=== PATIENT | male | born 1960 | race American Indian/Alaskan Native ===

== ENCOUNTER 2019-01-22 01:33 | Inpatient (IN) | payer MEDICAID ==
[2019-01-22] MEDS ORDERED: ASPIRIN PO ONE (02:55)
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
[2019-01-22 04:02] LABS: Basophils % (Auto) 0.1 % (0.0-1.8); Eosinophils % (Auto) 0.2 % (0.0-4.3); Hematocrit 34.6 % (35.5-45.6); Hemoglobin 11.5 gm/dl (11.8-15.2); Lymphocytes # (Auto) 0.6 K/mm3 (1.2-5.4); Lymphocytes % (Auto) 4.1 % (13.4-35.0); Mean Corpuscular HGB Conc 33 % (32-34); Mean Corpuscular Volume 95 fl (84-94); Monocytes # (Auto) 1.5 K/mm3 (0.0-0.8); Monocytes % (Auto) 10.1 % (0.0-7.3); Platelet Count 261 K/mm3 (140-440); Red Blood Count 3.65 M/mm3 (3.65-5.03); Red Cell Distribution Width 14.6 % (13.2-15.2)
[2019-01-22 05:13] LABS: BUN/Creatinine Ratio 11; Blood Urea Nitrogen 13 mg/dL (9-20); Calcium 8.5 mg/dL (8.4-10.2); Hemolysis Index 30
[2019-01-22] MEDS ORDERED: LASIX IV ONE (06:35)
[2019-01-22] MEDS ORDERED: ZESTRIL PO ONE (06:36)
[2019-01-22] MEDS ORDERED: LEVAQUIN PO ONE ×2 (06:36→06:37)
[2019-01-22] MEDS ORDERED: DELTASONE PO ONE (06:36)
--- NOTE | 2019-01-22 07:17 | Emergency Department Report ---
ED Shortness of Breath HPI - General Chief Complaint: Chest Pain Stated Complaint: CHEST PAIN Time Seen by Provider: 01/22/19 06:34 Source: patient, EMS Mode of arrival: Stretcher Limitations: No Limitations - History of Present Illness Initial Comments: Mr. Martinez is a 4-year-old male with history of chronic kidney disease, COPD, CHF, [place] who presents with shortness of breath. Shortness of breath for one week. He has sharp lower rib cage pain with inspiration. Productive cough. Former tobacco user. Positive shortness of breath with exertion. He has been compliant with his medication. MD Complaint: shortness of breath, cough, chest pain -: Gradual, week(s) (1) Severity: moderate Pain Scale: 5 Quality: sharp Consistency: intermittent Worsens With: exertion, inspiration Known History Of: COPD, congestive heart failure - Related Data Home Medications Medication Instructions Recorded Confirmed Last Taken Lisinopril [Zestril TAB] 09/03/13 09/03/13 Unknown Previous Rx's Medication Instructions Recorded Last Taken Type Meclizine [Antivert] 25 mg PO TID PRN #15 tablet 09/03/13 Unknown Rx Ondansetron [Zofran] 4 mg PO ONCE #12 tablet 09/03/13 Unknown Rx Cephalexin [Keflex] 250 mg PO Q6HR #28 capsule 10/28/13 Unknown Rx Allergies Allergy/AdvReac Type Severity Reaction Status Date / Time No Known Allergies Allergy Unverified 09/03/13 11:50 ED Review of Systems ROS: Stated complaint: CHEST PAIN Other details as noted in HPI Comment: All other systems reviewed and negative Constitutional: malaise. denies: fever Respiratory: cough, shortness of breath Cardiovascular: chest pain ED Past Medical Hx - Past Medical History Previous Medical History?: Yes Hx Hypertension: Yes Hx Congestive Heart Failure: Yes Hx COPD: Yes Additional medical history: vertigo - Surgical History Additional Surgical History: abd surgery - Social History Smoking Status: Former Smoker - Medications Home Medications: Home Medications Medication Instructions Recorded Confirmed Last Taken Type Lisinopril [Zestril TAB] 09/03/13 09/03/13 Unknown History Meclizine [Antivert] 25 mg PO TID PRN #15 tablet 09/03/13 Unknown Rx Ondansetron [Zofran] 4 mg PO ONCE #12 tablet 09/03/13 Unknown Rx Cephalexin [Keflex] 250 mg PO Q6HR #28 capsule 10/28/13 Unknown Rx ED Physical Exam - General Limitations: No Limitations General appearance: alert, in no apparent distress - Head Head exam: Present: atraumatic, normocephalic - Eye Eye exam: Present: normal appearance - ENT ENT exam: Present: mucous membranes moist - Neck Neck exam: Present: normal inspection, full ROM - Respiratory Respiratory exam: Present: normal lung sounds bilaterally. Absent: respiratory distress, wheezes, rales, rhonchi - Cardiovascular Cardiovascular Exam: Present: regular rate, normal rhythm, normal heart sounds. Absent: systolic murmur, diastolic murmur, rubs, gallop - GI/Abdominal GI/Abdominal exam: Present: soft, normal bowel sounds. Absent: distended, tenderness, guarding, rebound - Rectal Rectal exam: Present: deferred - Extremities Exam Extremities exam: Present: normal inspection - Back Exam Back exam: Present: normal inspection - Neurological Exam Neurological exam: Present: alert, oriented X3 - Psychiatric Psychiatric exam: Present: normal affect, normal mood - Skin Skin exam: Present: warm, dry, intact, normal color. Absent: rash ED Course Vital Signs 01/22/19 01/22/19 01/22/19 02:53 02:58 06:02 Temperature 97.8 F Pulse Rate 78 102 H Pulse Rate [ Throughout] Respiratory 20 19 24 Rate Respiratory Rate [ Throughout] Blood Pressure 137/86 Blood Pressure 149/98 [Right] O2 Sat by Pulse 97 97 Oximetry 01/22/19 01/22/19 01/22/19 07:30 08:30 10:25 Temperature Pulse Rate 100 H 109 H 103 H Pulse Rate [ Throughout] Respiratory 18 20 20 Rate Respiratory Rate [ Throughout] Blood Pressure Blood Pressure 136/96 138/92 151/88 [Right] O2 Sat by Pulse 97 98 100 Oximetry 01/22/19 01/22/19 11:30 13:09 Temperature Pulse Rate 99 H Pulse Rate [ 101 H Throughout] Respiratory 20 Rate Respiratory 19 Rate [ Throughout] Blood Pressure Blood Pressure 140/98 [Right] O2 Sat by Pulse 97 Oximetry ED Medical Decision Making - Lab Data Result diagrams: 01/22/19 03:40 01/22/19 03:40 Laboratory Results - last 24 hr 01/22/19 01/22/19 01/22/19 03:40 03:40 05:53 WBC 15.0 H RBC 3.65 Hgb 11.5 L Hct 34.6 L MCV 95 H MCH 32 MCHC 33 RDW 14.6 Plt Count 261 Lymph % (Auto) 4.1 L Gregg % (Auto) 10.1 H Eos % (Auto) 0.2 Baso % (Auto) 0.1 Lymph # 0.6 L Gregg # 1.5 H Eos # 0.0 Baso # 0.0 Seg Neutrophils % 85.5 H Seg Neutrophils # 12.8 H D-Dimer Sodium 142 Potassium 3.5 L Chloride 103.9 Carbon Dioxide 23 Anion Gap 19 BUN 13 Creatinine 1.2 Estimated GFR > 60 BUN/Creatinine Ratio 11 Glucose 103 H Calcium 8.5 Troponin T < 0.010 < 0.010 NT-Pro-B Natriuret Pep 01/22/19 01/22/19 01/22/19 07:08 07:08 08:30 WBC RBC Hgb Hct MCV MCH MCHC RDW Plt Count Lymph % (Auto) Gregg % (Auto) Eos % (Auto) Baso % (Auto) Lymph # Gregg # Eos # Baso # Seg Neutrophils % Seg Neutrophils # D-Dimer 341.68 H Sodium Potassium Chloride Carbon Dioxide Anion Gap BUN Creatinine Estimated GFR BUN/Creatinine Ratio Glucose Calcium Troponin T < 0.010 NT-Pro-B Natriuret Pep 3501 H - EKG Data 01/22/19 07:17 EKG obtained 246 Sinus tachycardia rate 100 beats a minute left axis deviation no significant ST elevation positive LVH no signs of acute ischemia no signs of pericarditis - Radiology Data Radiology results: report reviewed Chest x-ray: Right hilar disease CT angiogram chest: No PE no acute process, scarring in the right lung - Medical Decision Making Mr. Martinez has had persistent dyspnea and tachycardia while in ED. Suspect COPD exacerbation. CT negative for PE and PNA, PTX. Will admit to hospitalist service. Has had complaints of migrating chest pain atypical for ACS. Critical care attestation.: If time is entered above; I have spent that time in minutes in the direct care of this critically ill patient, excluding procedure time. ED Disposition Clinical Impression: COPD with acute exacerbation Disposition: OP ADMIT IP TO THIS HOSP Is pt being admited?: Yes Does the pt Need Aspirin: No Condition: Stable
--- NOTE | 2019-01-22 10:23 | Cat Scan Report ---
CTA CHEST WITH IV CONTRAST INDICATION: Pleuritic chest pain and elevated d-dimer. TECHNIQUE: Axial CT images were obtained through the chest after injection of 100 cc of Omnipaque 350 IV contras t. 3 plane MIP reconstructions were produced. All CT scans at this location are performed using CT do se reduction for ALARA by means of automated exposure control. COMPARISON: None available. FINDINGS: Pulmonary Arteries: No pulmonary emboli. Lungs: There is chronic scarring in the right middle and right lower lobes with elevation of the righ t hemidiaphragm, basis indeterminate. There is no acute consolidation or pleural effusion. There is n o additional significant interstitial disease. Trachea and Bronchi: No significant abnormality. Heart and Pericardium: No significant abnormality. Vasculature: No significant abnormality. Lymphatics: No lymphadenopathy. Additional Findings: None. Upper Abdomen: No acute findings. Skeletal Structures: No significant osseous abnormality. IMPRESSION: 1. No CT evidence for pulmonary embolism. 2. No acute findings. 3. Chronic linear scarring in the right lower lung with elevation of the right hemidiaphragm, basis i ndeterminate. Signer Name: Graeme Davis MD Signed: 01/22/2019 9:19 AM Workstation Name: [id number]
[2019-01-22] MEDS ORDERED: ATROVENT IH ONE (11:24)
[2019-01-22] MEDS ORDERED: PROVENTIL IH ONE (11:24)
[2019-01-22] MEDS ORDERED: PROAIR IH PRN (20:22)
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
[2019-01-22] MEDS ORDERED: NON-FORMULARY (Furosemide [Lasix Tab] 80 MG) PO SCH (20:30)
[2019-01-22] MEDS ORDERED: PROVENTIL IH PRN (20:40)
[2019-01-22] MEDS ORDERED: SODIUM CHLORIDE FLUSH SYRINGE 10 ML IV PRN (21:02)
[2019-01-22] MEDS ORDERED: ZOFRAN IV PRN (21:02)
[2019-01-22] MEDS ORDERED: PERCOCET 5/325 PO PRN (21:02)
[2019-01-22] MEDS ORDERED: TYLENOL PO PRN (21:02)
[2019-01-22] MEDS: FLOMAX PO SCH (21:26)
[2019-01-22] MEDS: PROSCAR PO SCH (21:26)
[2019-01-22] MEDS: ALDACTONE PO SCH (21:26)
[2019-01-22] MEDS: HALFPRIN EC PO SCH (21:27)
[2019-01-22] MEDS: VITAMIN B-12 PO SCH (21:37)
[2019-01-22] MEDS: SOLU-Medrol IV SCH (21:39)
[2019-01-22] MEDS: PEPCID IV SCH (21:39)
[2019-01-22] MEDS: LOVENOX SUB-Q SCH (21:39)
[2019-01-22] MEDS: LEVAQUIN 750MG/150ML 750 MG/150 ML BAG IV SCH (21:40)
[2019-01-22] MEDS: K-DUR PO SCH (21:40)
[2019-01-22] MEDS: CLARITIN PO SCH (21:40)
[2019-01-22] MEDS: SODIUM CHLORIDE FLUSH SYRINGE 10 ML IV SCH (21:43)
[2019-01-22] MEDS: COREG PO SCH (21:44)
[2019-01-22] MEDS ORDERED: K-DUR PO ONE (22:00)
[2019-01-22] MEDS ORDERED: NON-FORMULARY (Budesonide/Formoterol Fumarate [Symbicort 160-4.5 Mcg Inhaler] 2 PUFF) IH SCH (22:00)
[2019-01-23] MEDS: PULMICORT IH SCH ×4 (00:09→19:41)
[2019-01-23] MEDS: FLONASE NS SCH ×2 (00:09→09:35)
[2019-01-23] MEDS: BROVANA NEBU IH SCH ×3 (00:10→19:41)
[2019-01-23] MEDS: PROVENTIL IH SCH ×5 (00:10→19:41)
[2019-01-23] MEDS: LASIX IV SCH ×2 (05:17→18:21)
[2019-01-23 06:33] LABS: Hematocrit 35.3 % (35.5-45.6); Hemoglobin 11.8 gm/dl (11.8-15.2); Mean Corpuscular HGB Conc 33 % (32-34); Mean Corpuscular Volume 95 fl (84-94); Platelet Count 283 K/mm3 (140-440); Red Blood Count 3.72 M/mm3 (3.65-5.03); Red Cell Distribution Width 14.2 % (13.2-15.2)
[2019-01-23 07:02] LABS: Alanine Aminotransferase 6 units/L (7-56); Albumin 3.8 g/dL (3.9-5); BUN/Creatinine Ratio 13; Blood Urea Nitrogen 16 mg/dL (9-20); Calcium 9.5 mg/dL (8.4-10.2); Hemolysis Index 6
[2019-01-23] MEDS ORDERED: DUONEB *Not for PRN Use IH SCH (08:00)
[2019-01-23 09:24] LABS: Basophils % (Manual) 0 % (0.0-1.8); Eosinophils % (Manual) 0 % (0.0-4.3); Total Cells Counted 100
[2019-01-23 09:26] LABS: Large Platelets Rare; Platelet Estimate Consistent w Auto; RBC Morphology Normal
[2019-01-23] MEDS: LEVAQUIN 750MG/150ML 750 MG/150 ML BAG IV SCH (09:30)
[2019-01-23] MEDS: ISORDIL TITRADOSE PO SCH ×3 (09:36→22:16)
[2019-01-23] MEDS: VITAMIN B-12 PO SCH (09:37)
[2019-01-23] MEDS: PROSCAR PO SCH (09:37)
[2019-01-23] MEDS: APRESOLINE PO SCH ×3 (09:38→22:16)
[2019-01-23] MEDS: COREG PO SCH ×2 (09:38→22:17)
[2019-01-23] MEDS: CLARITIN PO SCH (09:38)
[2019-01-23] MEDS: HALFPRIN EC PO SCH (09:38)
[2019-01-23] MEDS: PEPCID IV SCH ×2 (09:39→22:18)
[2019-01-23] MEDS: SODIUM CHLORIDE FLUSH SYRINGE 10 ML IV SCH ×2 (09:41→22:18)
[2019-01-23] MEDS: SOLU-Medrol IV SCH ×2 (09:51→22:18)
[2019-01-23] MEDS: K-DUR PO SCH ×2 (09:51→22:15)
[2019-01-23] MEDS: ALDACTONE PO SCH (09:52)
--- NOTE | 2019-01-23 12:10 | Consultation ---
History of Present Illness Consult date: 01/23/19 Requesting physician: ESE VAZ Consult reason: congestive heart failure History of present illness: The pt is a 58 YO male with a past medical history of reported AMI in 2002 in [place] (states he had cath with no intervention required at that time), HFrEF, CMP with recent LifeVest placement (although he subsequently returned the device to [facility] [place] [facility] because he was scared to wear it while home alone), HTN, HLP, CKD, COPD, former tobacco use (quit smoking 1 year ago). He states he is regularly followed by a mold closer in [place], [place]. He presented with complaints of chest pain and SOB for several days. He describes his chest pain as an intermittent, nonexertional, nonradiating stabbing ribcage pain which occurs with inspiration and coughing. He denies any edema, palpitations, n/v, diaphoresis, dizziness or syncope. He reports compliance with his home medication regimen, including lasix. Past History Past Medical History: acute ME, heart failure, hypertension, hyperlipidemia, renal failure Social history: smoking (former) Medications and Allergies Allergies Allergy/AdvReac Type Severity Reaction Status Date / Time No Known Allergies Allergy Unverified 09/03/13 11:50 Home Medications Medication Instructions Recorded Confirmed Last Taken Type ALBUTEROL Inhaler (OR & NICU) 2 puff IH Q4H PRN 01/22/19 01/22/19 Unknown History [Proair] ALBUTEROL NEB's [Proventil] 2.5 mg IH Q6H 01/22/19 01/22/19 Unknown History Aspirin EC 81 mg PO QDAY 01/22/19 01/22/19 Unknown History AtorvaSTATin [Lipitor] 20 mg PO DAILY 01/22/19 01/22/19 Unknown History Budesonide/Formoterol Fumarate 2 puff IH BID 01/22/19 01/22/19 Unknown History [Symbicort 160-4.5 Mcg Inhaler] Carvedilol [Coreg] 12.5 mg PO BID 01/22/19 01/22/19 Unknown History Cyanocobalamin [Vitamin B-12] 2,000 mcg PO DAILY 01/22/19 01/22/19 Unknown History Finasteride [Proscar] 5 mg PO QDAY 01/22/19 01/22/19 Unknown History Fluticasone [Flonase] 2 spray NS QDAY 01/22/19 01/22/19 Unknown History Furosemide [Lasix TAB] 80 mg PO QDAY 01/22/19 01/22/19 Unknown History Isosorbide Dinitrate [Isordil 10 mg PO TID 01/22/19 01/22/19 Unknown History Titradose] Loratadine [Claritin] 10 mg PO DAILY 01/22/19 01/22/19 Unknown History Montelukast [Singulair] 10 mg PO QPM 01/22/19 01/22/19 Unknown History Spironolactone [Aldactone] 25 mg PO QDAY 01/22/19 01/22/19 Unknown History Tamsulosin [Flomax] 0.4 mg PO HS 01/22/19 01/22/19 Unknown History hydrALAZINE [Apresoline] 25 mg PO TID 01/22/19 01/22/19 Unknown History Active Meds: Active Medications Acetaminophen (Tylenol) 650 mg PO Q4H PRN PRN Reason: Pain MILD(1-3)/Fever >100.5/HUITRON Albuterol (Proventil) 2.5 mg IH Q6H [facility] Last Admin: 01/23/19 07:35 Dose: Not Given Documented by: Albuterol (Proventil) 2.5 mg IH Q4HRT PRN PRN Reason: Shortness Of Breath Arformoterol Tartrate (Brovana Nebu) 15 mcg IH Q12HRT [facility] Last Admin: 01/23/19 07:35 Dose: 15 mcg Documented by: Aspirin (Halfprin Ec) 81 mg PO QDAY [facility] Last Admin: 01/23/19 09:38 Dose: 81 mg Documented by: Atorvastatin Calcium (Lipitor) 20 mg PO DAILY [facility] Last Admin: 01/23/19 09:38 Dose: 20 mg Documented by: Budesonide (Pulmicort) 1 mg IH Q12HRT [facility] Last Admin: 01/23/19 07:35 Dose: 0.5 mg Documented by: Carvedilol (Coreg) 12.5 mg PO BID [facility] Last Admin: 01/23/19 09:38 Dose: 12.5 mg Documented by: Cyanocobalamin (Vitamin B-12) 2,000 mcg PO DAILY [facility] Last Admin: 01/23/19 09:37 Dose: 2,000 mcg Documented by: Enoxaparin Sodium (Lovenox) 40 mg SUB-Q QDAY@2200 [facility] Last Admin: 01/22/19 21:39 Dose: 40 mg Documented by: Famotidine (Pepcid) 20 mg IV BID [facility] Last Admin: 01/23/19 09:39 Dose: 20 mg Documented by: Finasteride (Proscar) 5 mg PO QDAY [facility] Last Admin: 01/23/19 09:37 Dose: 5 mg Documented by: Fluticasone Propionate (Flonase) 100 mcg NS QDAY [facility] Last Admin: 01/23/19 09:35 Dose: 100 mcg Documented by: Furosemide (Lasix) 40 mg IV 0600,1800 [facility] Last Admin: 01/23/19 05:17 Dose: 40 mg Documented by: Hydralazine HCl (Apresoline) 25 mg PO TID [facility] Last Admin: 01/23/19 09:38 Dose: 25 mg Documented by: Hydromorphone HCl (Dilaudid) 0.5 mg IV Q3H PRN PRN Reason: Pain , Severe (7-10) Levofloxacin/Dextrose (Levaquin 750mg/150ml) 750 mg in 150 mls @ 100 mls/hr IV Q24HR [facility]; Protocol Last Admin: 01/23/19 09:30 Dose: 100 mls/hr Documented by: Isosorbide Dinitrate (Isordil Titradose) 10 mg PO TID [facility] Last Admin: 01/23/19 09:36 Dose: 10 mg Documented by: Loratadine (Claritin) 10 mg PO DAILY [facility] Last Admin: 01/23/19 09:38 Dose: 10 mg Documented by: Methylprednisolone Sodium Succinate (Solu-Medrol) 40 mg IV Q12H [facility] Last Admin: 01/23/19 09:51 Dose: 40 mg Documented by: Montelukast Sodium (Singulair) 10 mg PO QPM [facility] Ondansetron HCl (Zofran) 4 mg IV Q8H PRN PRN Reason: Nausea And Vomiting Oxycodone/Acetaminophen (Percocet 5/325) 1 tab PO Q6H PRN PRN Reason: Pain, Moderate (4-6) Potassium Chloride (K-Dur) 20 meq PO Q12H [facility] Last Admin: 01/23/19 09:51 Dose: 20 meq Documented by: Sodium Chloride (Sodium Chloride Flush Syringe 10 Ml) 10 ml IV BID [facility] Last Admin: 01/23/19 09:41 Dose: 10 ml Documented by: Sodium Chloride (Sodium Chloride Flush Syringe 10 Ml) 10 ml IV PRN PRN PRN Reason: LINE FLUSH Spironolactone (Aldactone) 25 mg PO QDAY [facility] Last Admin: 01/23/19 09:52 Dose: 25 mg Documented by: Tamsulosin HCl (Flomax) 0.4 mg PO HS [facility] Last Admin: 01/22/19 21:26 Dose: 0.4 mg Documented by: Review of Systems Constitutional: no weight loss, no weight gain, no fever, no chills, no sweats Ears, nose, mouth and throat: no ear pain, no nose pain, no sinus pressure, no sinus pain Cardiovascular: chest pain, shortness of breath, dyspnea on exertion, decreased exercise tolerance, no palpitations, no rapid/irregular heart beat, no edema, no syncope, no lightheadedness, no leg edema Respiratory: cough, shortness of breath, dyspnea on exertion, pain on inspiration, no congestion, no wheezing Gastrointestinal: no abdominal pain, no nausea, no vomiting, no diarrhea, no constipation, no change in bowel habits Genitourinary Male: no dysuria, no hematuria, no flank pain, no discharge, no urinary frequency, no urinary hesitancy Musculoskeletal: no neck stiffness, no neck pain, no shooting arm pain, no arm numbness/tingling, no low back pain, no shooting leg pain Integumentary: no rash, no pruritis, no redness, no sores, no wounds Neurological: no head injury, no paralysis, no weakness, no parathesias, no numbness, no tingling, no seizures, no syncope Psychiatric: no anxiety Endocrine: no cold intolerance, no heat intolerance Hematologic/Lymphatic: no easy bruising, no easy bleeding Allergic/Immunologic: no urticaria, no wheezing Physical Examination Vital Signs Temp Pulse Resp BP Pulse Ox 97.8 F 78 20 137/86 97 01/22/19 02:53 01/22/19 02:53 01/22/19 02:53 01/22/19 02:53 01/22/19 02:53 General appearance: no acute distress HEENT: Positive: PERRL, Normocephaly, Mucus Membranes Moist Neck: Positive: neck supple, trachea midline Cardiac: Positive: Reg Rate and Rhythm, S1/S2 Lungs: Positive: Decreased Breath Sounds Neuro: Positive: Grossly Intact Abdomen: Negative: Tender Skin: Negative: Rash Musculoskeletal: No Pain Extremities: Absent: edema Results 01/23/19 05:47 01/23/19 05:47 Cardiac Enzymes 01/23/19 Range/Units 05:47 AST 13 (5-40) units/L CBC 01/23/19 Range/Units 05:47 WBC 14.1 H (4.5-11.0) K/mm3 RBC 3.72 (3.65-5.03) M/mm3 Hgb 11.8 (11.8-15.2) gm/dl Hct 35.3 L (35.5-45.6) % Plt Count 283 (140-440) K/mm3 Comprehensive Metabolic Panel 01/23/19 Range/Units 05:47 Sodium 141 (137-145) mmol/L Potassium 4.7 D (3.6-5.0) mmol/L Chloride 106.5 (98-107) mmol/L Carbon Dioxide 24 (22-30) mmol/L BUN 16 (9-20) mg/dL Creatinine 1.2 (0.8-1.5) mg/dL Glucose 158 H (75-100) mg/dL Calcium 9.5 (8.4-10.2) mg/dL AST 13 (5-40) units/L ALT 6 L (7-56) units/L Alkaline Phosphatase 86 (35-129) units/L Total Protein 7.2 (6.3-8.2) g/dL Albumin 3.8 L (3.9-5) g/dL - Imaging and Cardiology Echo: pending EKG: report reviewed, image reviewed EKG interpretations - Telemetry EKG Rhythm: Sinus Rhythm - EKG Sinus rhythms and dysrhythmias: sinus rhythm AV and intraventricular conduction: intraventricular conducti Assessment and Plan DDimer elevated - chest CTA negative for PE, showed chronic linear scarring in the RLL with elevation of right hemidiaphragm. AMI ruled out. Pt's chest pain appears to be pleuritic in nature. Will obtain echo. Per pt's reported history, suspect pt has HFrEF and CMP. He will likely require ischemic evaluation for further eval of cp and CMP. 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 He states he has undergone cardiac catheterization before and was also ordered a LifeVest at one point. We will attempt to obtain these medical records. Will tentatively schedule for lexiscan MPI stress test in AM although he may ultimately require C for definitive diagnosis. He may also require LifeVest to be reinstated. Agree with present cardiac medical management. Further recs to follow per hosp ital course. The patient has been seen in conjunction with Dr. Robles who agrees with the assessment and plan of care. - Patient Problems (1) Acute heart failure Current Visit: Yes Status: Acute (2) Cardiomyopathy Current Visit: Yes Status: Suspected (3) COPD with acute exacerbation Current Visit: Yes Status: Acute (4) Chest pain Current Visit: Yes Status: Acute Qualifiers: Chest pain type: unspecified Qualified Code(s): R07.9 - Chest pain, unspecified (5) Coronary artery disease Current Visit: Yes Status: Chronic Qualifiers: Coronary Disease-Associated Artery/Lesion type: [place] artery [place] vs. transplanted heart: [place] heart (6) Hyperlipidemia Current Visit: Yes Status: Chronic Qualifiers: Hyperlipidemia type: mixed hyperlipidemia Qualified Code(s): E78.2 - Mixed hyperlipidemia (7) Hypertension Current Visit: Yes Status: Chronic Qualifiers: Hypertension type: essential hypertension Qualified Code(s): I10 - Essential (primary) hypertension (8) CKD (chronic kidney disease) Current Visit: Yes Status: Chronic
--- NOTE | 2019-01-23 13:25 | Progress Note ---
Assessment and Plan Assessment and plan: (1) chronic systolic CHF with exacerbation Patient said it ejection fraction was 25% IV Lasix 40 mg every 12 Daily weights Daily intake and output Echocardiogram for ejection fraction and valvular function Cardiology consult appreciated (2) Chest pain Troponins were negative stress test ordered by cardiology (3) COPD with acute exacerbation Nebulizer treatments with albuterol and ipratropium IV Solu-Medrol and IV Levaquin BiPAP if necessary (4) BPH (benign prostatic hyperplasia) Continue tamsulosin and Proscar (5) Hypertension Continue antihypertensives (6) Hyperlipidemia Continue statins (7) Coronary artery disease Continue Isordil and aspirin (8) Hypokalemia Supplemented (9) DVT prophylaxis On Lovenox and GI prophylaxis Disposition: continue inpatient care. History Interval history: Patient was seen and evaluated this morning, patient said SOB getting better. Hospitalist Physical - Physical exam Narrative exam: Not in cardiopulmonary distress. The patient is obese. Vital signs as documented. Head exam is unremarkable. No scleral icterus . Neck is without jugular venous distension, thyromegaly, or carotid bruits. Lungs are clear to auscultation. Cardiac exam reveals regular rate and Rhythm. Abdominal exam reveals normal bowel sounds, no masses, no organomegaly and no aortic enlargement. Extremities are nonedematous and both femoral and pedal pulses are normal. ALLERGY AND IMMUNOLOGY CHIEF: Alert and oriented 3. No focal weakness. - Constitutional Vitals: Temp Pulse Resp BP Pulse Ox 97.9 F 83 17 118/79 100 01/23/19 07:29 01/23/19 09:52 01/23/19 07:45 01/23/19 07:29 01/23/19 07:29 General appearance: Present: no acute distress Results - Labs CBC & Chem 7: 01/23/19 05:47 01/23/19 05:47 Labs: Laboratory Last Values WBC 14.1 K/mm3 (4.5-11.0) H 01/23/19 05:47 RBC 3.72 M/mm3 (3.65-5.03) 01/23/19 05:47 Hgb 11.8 gm/dl (11.8-15.2) 01/23/19 05:47 Hct 35.3 % (35.5-45.6) L 01/23/19 05:47 MCV 95 fl (84-94) H 01/23/19 05:47 MCH 32 pg (28-32) 01/23/19 05:47 MCHC 33 % (32-34) 01/23/19 05:47 RDW 14.2 % (13.2-15.2) 01/23/19 05:47 Plt Count 283 K/mm3 (140-440) 01/23/19 05:47 Lymph % (Auto) 4.1 % (13.4-35.0) L 01/22/19 03:40 [place] % (Auto) 10.1 % (0.0-7.3) H 01/22/19 03:40 Eos % (Auto) 0.2 % (0.0-4.3) 01/22/19 03:40 Baso % (Auto) 0.1 % (0.0-1.8) 01/22/19 03:40 Lymph # 0.6 K/mm3 (1.2-5.4) L 01/22/19 03:40 [place] # 1.5 K/mm3 (0.0-0.8) H 01/22/19 03:40 Eos # 0.0 K/mm3 (0.0-0.4) 01/22/19 03:40 Baso # 0.0 K/mm3 (0.0-0.1) 01/22/19 03:40 Add Manual Diff Complete 01/23/19 05:47 Total Counted 100 01/23/19 05:47 Seg Neutrophils % 85.5 % (40.0-70.0) H 01/22/19 03:40 Seg Neuts % (Manual) 95.0 % (40.0-70.0) H 01/23/19 05:47 0 % 01/23/19 05:47 4.0 % (13.4-35.0) L 01/23/19 05:47 Reactive Lymphs % (Man) 0 % 01/23/19 05:47 1.0 % (0.0-7.3) 01/23/19 05:47 0 % (0.0-4.3) 01/23/19 05:47 0 % (0.0-1.8) 01/23/19 05:47 0 % 01/23/19 05:47 0 % 01/23/19 05:47 0 % 01/23/19 05:47 0 % 07/03/19 05:47 Nucleated RBC % Not Reportable 01/23/19 05:47 Seg Neutrophils # 12.8 K/mm3 (1.8-7.7) H 01/22/19 03:40 Seg Neutrophils # Man 13.4 K/mm3 (1.8-7.7) H 01/23/19 05:47 Band Neutrophils # 0.0 K/mm3 01/23/19 05:47 0.6 K/mm3 (1.2-5.4) L 01/23/19 05:47 Abs React Lymphs (Man) 0.0 K/mm3 01/23/19 05:47 0.1 K/mm3 (0.0-0.8) 01/23/19 05:47 0.0 K/mm3 (0.0-0.4) 01/23/19 05:47 0.0 K/mm3 (0.0-0.1) 01/23/19 05:47 0.0 K/mm3 01/23/19 05:47 0.0 K/mm3 01/23/19 05:47 0.0 K/mm3 01/23/19 05:47 Blast Cells # 0.0 K/mm3 01/23/19 05:47 WBC Morphology Not Reportable 01/23/19 05:47 Hypersegmented Neuts Not Reportable 01/23/19 05:47 Hyposegmented Neuts Not Reportable 01/23/19 05:47 Hypogranular Neuts Not Reportable 01/23/19 05:47 Not Reportable 01/23/19 05:47 Not Reportable 01/23/19 05:47 Not Reportable 01/23/19 05:47 Not Reportable 01/23/19 05:47 Not Reportable 01/23/19 05:47 Not Reportable 01/23/19 05:47 Consistent w auto 01/23/19 05:47 Not Reportable 01/23/19 05:47 Plt Clumps, EDTA Not Reportable 01/23/19 05:47 Rare 01/23/19 05:47 Not Reportable 01/23/19 05:47 Not Reportable 01/23/19 05:47 Plt Morphology Comment Not Reportable 01/23/19 05:47 RBC Morphology Normal 01/23/19 05:47 Dimorphic RBCs Not Reportable 01/23/19 05:47 Not Reportable 01/23/19 05:47 Not Reportable 01/23/19 05:47 Not Reportable 01/23/19 05:47 Not Reportable 01/23/19 05:47 Not Reportable 01/23/19 05:47 Not Reportable 01/23/19 05:47 Not Reportable 01/23/19 05:47 Not Reportable 01/23/19 05:47 Not Reportable 01/23/19 05:47 Not Reportable 01/23/19 05:47 Not Reportable 01/23/19 05:47 Not Reportable 01/23/19 05:47 Not Reportable 01/23/19 05:47 Not Reportable 01/23/19 05:47 Not Reportable 01/23/19 05:47 Not Reportable 01/23/19 05:47 Not Reportable 01/23/19 05:47 Not Reportable 01/23/19 05:47 Not Reportable 01/23/19 05:47 Acanthocytes (Spur) Not Reportable 01/23/19 05:47 Rouleaux Not Reportable 01/23/19 05:47 Not Reportable 01/23/19 05:47 Not Reportable 01/23/19 05:47 Not Reportable 01/23/19 05:47 Not Reportable 01/23/19 05:47 Hem Pathologist Commnt No 01/23/19 05:47 341.68 ng/mlDDU (0-234) H 01/22/19 07:08 Sodium 141 mmol/L (137-145) 01/23/19 05:47 Potassium 4.7 mmol/L (3.6-5.0) D 01/23/19 05:47 Chloride 106.5 mmol/L (98-107) 01/23/19 05:47 Carbon Dioxide 24 mmol/L (22-30) 01/23/19 05:47 15 mmol/L 01/23/19 05:47 BUN 16 mg/dL (9-20) 01/23/19 05:47 1.2 mg/dL (0.8-1.5) 01/23/19 05:47 Estimated GFR > 60 ml/min 01/23/19 05:47 13 % 01/23/19 05:47 Glucose 158 mg/dL (75-100) H 01/23/19 05:47 5.1 % (4-6) 01/22/19 21:50 Calcium 9.5 mg/dL (8.4-10.2) 01/23/19 05:47 0.30 mg/dL (0.1-1.2) 01/23/19 05:47 AST 13 units/L (5-40) 01/23/19 05:47 ALT 6 units/L (7-56) L 01/23/19 05:47 86 units/L (35-129) 01/23/19 05:47 < 0.010 ng/mL (0.00-0.029) 01/22/19 08:30 NT-Pro-B Natriuret Pep 3501 pg/mL (0-900) H 01/22/19 07:08 7.2 g/dL (6.3-8.2) 01/23/19 05:47 3.8 g/dL (3.9-5) L 01/23/19 05:47 1.1 % 01/23/19 05:47 Active Medications - Current Medications Current Medications: Generic Name Dose Route Start Last Admin Trade Name Freq PRN Reason Stop Dose Admin Acetaminophen 650 mg 01/22/19 21:02 Tylenol PO Q4H PRN Pain MILD(1-3)/Fever >100.5/HUITRON Albuterol 2.5 mg 01/22/19 20:30 01/23/19 07:35 Proventil IH Not Given Q6H RUFUS Albuterol 2.5 mg 01/22/19 20:40 Proventil IH Q4HRT PRN Shortness Of Breath Arformoterol Tartrate 15 mcg 01/22/19 22:00 01/23/19 07:35 Brovana Nebu IH 15 mcg Q12HRT RUFUS Administration Aspirin 81 mg 01/22/19 21:00 01/23/19 09:38 Halfprin Ec PO 81 mg QDAY RUFUS Administration Atorvastatin Calcium 20 mg 01/22/19 20:30 01/23/19 09:38 Lipitor PO 20 mg DAILY RUFUS Administration Budesonide 1 mg 01/22/19 22:00 01/23/19 07:35 Pulmicort IH 0.5 mg Q12HRT RUFUS Administration Carvedilol 12.5 mg 01/22/19 22:00 01/23/19 09:38 Coreg PO 12.5 mg BID RUFUS Administration Cyanocobalamin 2,000 mcg 01/22/19 21:00 01/23/19 09:37 Vitamin B-12 PO 2,000 mcg DAILY RUFUS Administration Enoxaparin Sodium 40 mg 01/22/19 22:00 01/22/19 21:39 Lovenox SUB-Q 40 mg QDAY@2200 RUFUS Administration Famotidine 20 mg 01/22/19 22:00 01/23/19 09:39 Pepcid IV 20 mg BID RUFUS Administration Finasteride 5 mg 01/22/19 21:00 01/23/19 09:37 Proscar PO 5 mg QDAY RUFUS Administration Fluticasone Propionate 100 mcg 01/22/19 21:00 01/23/19 09:35 Flonase NS 100 mcg QDAY [facility] Administration Furosemide 40 mg 01/23/19 06:00 01/23/19 05:17 Lasix IV 40 mg 0600,1800 RUFUS Administration Hydralazine HCl 25 mg 01/23/19 08:00 01/23/19 09:38 Apresoline PO 25 mg TID [facility] Administration Hydromorphone HCl 0.5 mg 01/22/19 21:02 Dilaudid IV Q3H PRN Pain , Severe (7-10) Levofloxacin/Dextrose 750 mg in 150 mls @ 100 mls/hr 01/22/19 22:00 01/23/19 09:30 Levaquin 750mg/150ml IV 100 mls/hr Q24HR RUFUS Administration Protocol Isosorbide Dinitrate 10 mg 01/23/19 08:00 01/23/19 09:36 Isordil Titradose PO 10 mg TID [facility] Administration Loratadine 10 mg 01/22/19 21:00 01/23/19 09:38 Claritin PO 10 mg DAILY [facility] Administration Methylprednisolone Sodium Succinate 40 mg 01/22/19 22:00 01/23/19 09:51 Solu-Medrol IV 40 mg Q12H RUFUS Administration Montelukast Sodium 10 mg 01/23/19 18:00 Singulair PO QPM RUFUS Ondansetron HCl 4 mg 01/22/19 21:02 Zofran IV Q8H PRN Nausea And Vomiting Oxycodone/Acetaminophen 1 tab 01/22/19 21:02 Percocet 5/325 PO Q6H PRN Pain, Moderate (4-6) Potassium Chloride 20 meq 01/22/19 22:00 01/23/19 09:51 K-Dur PO 20 meq Q12H RUFUS Administration Sodium Chloride 10 ml 01/22/19 22:00 01/23/19 09:41 Sodium Chloride Flush Syringe 10 Ml IV 10 ml BID RUFUS Administration Sodium Chloride 10 ml 01/22/19 21:02 Sodium Chloride Flush Syringe 10 Ml IV PRN PRN LINE FLUSH Spironolactone 25 mg 01/22/19 21:00 01/23/19 09:52 Aldactone PO 25 mg QDAY RUFUS Administration Tamsulosin HCl 0.4 mg 01/22/19 22:00 01/22/19 21:26 Flomax PO 0.4 mg HS RUFUS Administration
[2019-01-23] MEDS: SINGULAIR PO SCH (18:21)
[2019-01-23] MEDS ORDERED: LASIX PO SCH (20:30)
[2019-01-23] MEDS: FLOMAX PO SCH (22:15)
[2019-01-23] MEDS: LOVENOX SUB-Q SCH (22:18)
[2019-01-24] MEDS: PROVENTIL IH SCH ×4 (02:30→20:24)
[2019-01-24 06:15] LABS: BUN/Creatinine Ratio 18; Blood Urea Nitrogen 23 mg/dL (9-20); Calcium 9.5 mg/dL (8.4-10.2); Hemolysis Index 1
[2019-01-24] MEDS: LASIX IV SCH ×2 (07:20→18:29)
[2019-01-24] MEDS: BROVANA NEBU IH SCH ×2 (07:29→20:24)
[2019-01-24] MEDS: PULMICORT IH SCH ×2 (07:29→20:24)
[2019-01-24] MEDS ORDERED: LEXISCAN IV ONE (07:49)
[2019-01-24 08:57] LABS: BUN/Creatinine Ratio 18; Blood Urea Nitrogen 23 mg/dL (9-20); Hemolysis Index 4
--- NOTE | 2019-01-24 10:07 | Progress Note ---
Assessment and Plan Assessment and plan: (1) chronic systolic CHF with exacerbation Patient said it ejection fraction was 25% IV Lasix 40 mg every 12 Daily weights Daily intake and output Echocardiogram showed 25-30% Cardiology consult appreciated (2) Chest pain Troponins were negative stress test will be done today (3) COPD with acute exacerbation Nebulizer treatments with albuterol and ipratropium IV Solu-Medrol and IV Levaquin BiPAP if necessary (4) BPH (benign prostatic hyperplasia) Continue tamsulosin and Proscar (5) Hypertension Continue antihypertensives (6) Hyperlipidemia Continue statins (7) Coronary artery disease Continue Isordil and aspirin (8) Hypokalemia Supplemented (9) DVT prophylaxis On Lovenox and GI prophylaxis Disposition: continue inpatient care. History Interval history: Patient was seen and evaluated this morning, patient said SOB getting better. Hospitalist Physical - Physical exam Narrative exam: Not in cardiopulmonary distress. The patient is obese. Vital signs as documented. Head exam is unremarkable. No scleral icterus . Neck is without jugular venous distension, thyromegaly, or carotid bruits. Lungs are clear to auscultation. Cardiac exam reveals regular rate and Rhythm. Abdominal exam reveals normal bowel sounds, no masses, no organomegaly and no aortic enlargement. Extremities are nonedematous and both femoral and pedal pulses are normal. CREDIT MANAGER: Alert and oriented 3. No focal weakness. - Constitutional Vitals: Temp Pulse Resp BP Pulse Ox 97.5 F L 93 H 18 121/85 99 01/24/19 03:33 01/24/19 03:33 01/24/19 03:33 01/24/19 03:33 01/24/19 03:33 General appearance: Present: no acute distress Results - Labs CBC & Chem 7: 01/23/19 05:47 01/24/19 07:09 Labs: Laboratory Last Values WBC 14.1 K/mm3 (4.5-11.0) H 01/23/19 05:47 RBC 3.72 M/mm3 (3.65-5.03) 01/23/19 05:47 Hgb 11.8 gm/dl (11.8-15.2) 01/23/19 05:47 Hct 35.3 % (35.5-45.6) L 01/23/19 05:47 MCV 95 fl (84-94) H 01/23/19 05:47 MCH 32 pg (28-32) 01/23/19 05:47 MCHC 33 % (32-34) 01/23/19 05:47 RDW 14.2 % (13.2-15.2) 01/23/19 05:47 Plt Count 283 K/mm3 (140-440) 01/23/19 05:47 Lymph % (Auto) 4.1 % (13.4-35.0) L 01/22/19 03:40 [place] % (Auto) 10.1 % (0.0-7.3) H 01/22/19 03:40 Eos % (Auto) 0.2 % (0.0-4.3) 01/22/19 03:40 Baso % (Auto) 0.1 % (0.0-1.8) 01/22/19 03:40 Lymph # 0.6 K/mm3 (1.2-5.4) L 01/22/19 03:40 [place] # 1.5 K/mm3 (0.0-0.8) H 01/22/19 03:40 Eos # 0.0 K/mm3 (0.0-0.4) 01/22/19 03:40 Baso # 0.0 K/mm3 (0.0-0.1) 01/22/19 03:40 Add Manual Diff Complete 01/23/19 05:47 Total Counted 100 01/23/19 05:47 Seg Neutrophils % 85.5 % (40.0-70.0) H 01/22/19 03:40 Seg Neuts % (Manual) 95.0 % (40.0-70.0) H 01/23/19 05:47 0 % 01/23/19 05:47 4.0 % (13.4-35.0) L 01/23/19 05:47 Reactive Lymphs % (Man) 0 % 01/23/19 05:47 1.0 % (0.0-7.3) 01/23/19 05:47 0 % (0.0-4.3) 01/23/19 05:47 0 % (0.0-1.8) 01/23/19 05:47 0 % 01/23/19 05:47 0 % 01/23/19 05:47 0 % 01/23/19 05:47 0 % 01/23/19 05:47 Nucleated RBC % Not Reportable 01/23/19 05:47 Seg Neutrophils # 12.8 K/mm3 (1.8-7.7) H 01/22/19 03:40 Seg Neutrophils # Man 13.4 K/mm3 (1.8-7.7) H 01/23/19 05:47 Band Neutrophils # 0.0 K/mm3 01/23/19 05:47 0.6 K/mm3 (1.2-5.4) L 01/23/19 05:47 Abs React Lymphs (Man) 0.0 K/mm3 01/23/19 05:47 0.1 K/mm3 (0.0-0.8) 01/23/19 05:47 0.0 K/mm3 (0.0-0.4) 01/23/19 05:47 0.0 K/mm3 (0.0-0.1) 01/23/19 05:47 0.0 K/mm3 01/23/19 05:47 0.0 K/mm3 01/23/19 05:47 0.0 K/mm3 01/23/19 05:47 Blast Cells # 0.0 K/mm3 01/23/19 05:47 WBC Morphology Not Reportable 01/23/19 05:47 Hypersegmented Neuts Not Reportable 01/23/19 05:47 Hyposegmented Neuts Not Reportable 01/23/19 05:47 Hypogranular Neuts Not Reportable 01/23/19 05:47 Not Reportable 01/23/19 05:47 Not Reportable 01/23/19 05:47 Not Reportable 01/23/19 05:47 Not Reportable 01/23/19 05:47 Not Reportable 01/23/19 05:47 Not Reportable 01/23/19 05:47 Consistent w auto 01/23/19 05:47 Not Reportable 01/23/19 05:47 Plt Clumps, EDTA Not Reportable 01/23/19 05:47 Rare 01/23/19 05:47 Not Reportable 01/23/19 05:47 Not Reportable 01/23/19 05:47 Plt Morphology Comment Not Reportable 01/23/19 05:47 RBC Morphology Normal 01/23/19 05:47 Dimorphic RBCs Not Reportable 01/23/19 05:47 Not Reportable 01/23/19 05:47 Not Reportable 01/23/19 05:47 Not Reportable 01/23/19 05:47 Not Reportable 01/23/19 05:47 Not Reportable 01/23/19 05:47 Not Reportable 01/23/19 05:47 Not Reportable 01/23/19 05:47 Not Reportable 01/23/19 05:47 Not Reportable 01/23/19 05:47 Not Reportable 01/23/19 05:47 Not Reportable 01/23/19 05:47 Not Reportable 01/23/19 05:47 Not Reportable 01/23/19 05:47 Not Reportable 01/23/19 05:47 Not Reportable 01/23/19 05:47 Not Reportable 01/23/19 05:47 Not Reportable 01/23/19 05:47 Not Reportable 01/23/19 05:47 Not Reportable 01/23/19 05:47 Acanthocytes (Spur) Not Reportable 01/23/19 05:47 Rouleaux Not Reportable 01/23/19 05:47 Not Reportable 01/23/19 05:47 Not Reportable 01/23/19 05:47 Not Reportable 01/23/19 05:47 Not Reportable 01/23/19 05:47 Hem Pathologist Commnt No 01/23/19 05:47 341.68 ng/mlDDU (0-234) H 01/22/19 07:08 Sodium 139 mmol/L (137-145) 01/24/19 07:09 Potassium 4.7 mmol/L (3.6-5.0) 01/24/19 07:09 Chloride 100.7 mmol/L (98-107) 01/24/19 07:09 Carbon Dioxide 26 mmol/L (22-30) 01/24/19 07:09 17 mmol/L 01/24/19 07:09 BUN 23 mg/dL (9-20) H 01/24/19 07:09 1.3 mg/dL (0.8-1.5) 01/24/19 07:09 Estimated GFR > 60 ml/min 01/24/19 07:09 18 % 01/24/19 07:09 Glucose 156 mg/dL (75-100) H 01/24/19 07:09 5.1 % (4-6) 01/22/19 21:50 Calcium 10.0 mg/dL (8.4-10.2) 01/24/19 07:09 0.30 mg/dL (0.1-1.2) 01/23/19 05:47 AST 13 units/L (5-40) 01/23/19 05:47 ALT 6 units/L (7-56) L 01/23/19 05:47 86 units/L (35-129) 01/23/19 05:47 < 0.010 ng/mL (0.00-0.029) 01/22/19 08:30 NT-Pro-B Natriuret Pep 3501 pg/mL (0-900) H 01/22/19 07:08 7.2 g/dL (6.3-8.2) 01/23/19 05:47 3.8 g/dL (3.9-5) L 01/23/19 05:47 1.1 % 01/23/19 05:47 Active Medications - Current Medications Current Medications: Generic Name Dose Route Start Last Admin Trade Name Freq PRN Reason Stop Dose Admin Acetaminophen 650 mg 01/22/19 21:02 Tylenol PO Q4H PRN Pain MILD(1-3)/Fever >100.5/HUITRON Albuterol 2.5 mg 01/22/19 20:30 01/24/19 07:29 Proventil IH Not Given Q6H RUFUS Albuterol 2.5 mg 01/22/19 20:40 Proventil IH Q4HRT PRN Shortness Of Breath Arformoterol Tartrate 15 mcg 01/22/19 22:00 01/24/19 07:29 Brovana Nebu IH Not Given Q12HRT RUFUS Aspirin 81 mg 01/22/19 21:00 01/23/19 09:38 Halfprin Ec PO 81 mg QDAY RUFUS Administration Atorvastatin Calcium 20 mg 01/22/19 20:30 01/23/19 09:38 Lipitor PO 20 mg DAILY RUFUS Administration Budesonide 1 mg 01/22/19 22:00 01/24/19 07:29 Pulmicort IH Not Given Q12HRT RUFUS Carvedilol 12.5 mg 01/22/19 22:00 01/23/19 22:17 Coreg PO 12.5 mg BID RUFUS Administration Cyanocobalamin 2,000 mcg 01/22/19 21:00 01/23/19 09:37 Vitamin B-12 PO 2,000 mcg DAILY RUFUS Administration Enoxaparin Sodium 40 mg 01/22/19 22:00 01/23/19 22:18 Lovenox SUB-Q 40 mg QDAY@2200 RUFUS Administration Famotidine 20 mg 01/22/19 22:00 01/23/19 22:18 Pepcid IV 20 mg BID RUFUS Administration Finasteride 5 mg 01/22/19 21:00 01/23/19 09:37 Proscar PO 5 mg QDAY RUFUS Administration Fluticasone Propionate 100 mcg 01/22/19 21:00 01/23/19 09:35 Flonase NS 100 mcg QDAY RUFUS Administration Furosemide 40 mg 01/23/19 06:00 01/24/19 07:20 Lasix IV 40 mg 0600,1800 RUFUS Administration Hydralazine HCl 25 mg 01/23/19 08:00 01/23/19 22:16 Apresoline PO 25 mg TID RUFUS Administration Hydromorphone HCl 0.5 mg 01/22/19 21:02 Dilaudid IV Q3H PRN Pain , Severe (7-10) Levofloxacin/Dextrose 750 mg in 150 mls @ 100 mls/hr 01/22/19 22:00 01/23/19 09:30 Levaquin 750mg/150ml IV 100 mls/hr Q24HR RUFUS Administration Protocol Isosorbide Dinitrate 10 mg 01/23/19 08:00 01/23/19 22:16 Isordil Titradose PO 10 mg TID RUFUS Administration Loratadine 10 mg 01/22/19 21:00 01/23/19 09:38 Claritin PO 10 mg DAILY RUFUS Administration Methylprednisolone Sodium Succinate 40 mg 01/22/19 22:00 01/23/19 22:18 Solu-Medrol IV 40 mg Q12H URFUS Administration Montelukast Sodium 10 mg 01/23/19 18:00 01/23/19 18:21 Singulair PO 10 mg QPM RUFUS Administration Ondansetron HCl 4 mg 01/22/19 21:02 Zofran IV Q8H PRN Nausea And Vomiting Oxycodone/Acetaminophen 1 tab 01/22/19 21:02 Percocet 5/325 PO Q6H PRN Pain, Moderate (4-6) Potassium Chloride 20 meq 01/22/19 22:00 01/23/19 22:15 K-Dur PO 20 meq Q12H RUFUS Administration Sodium Chloride 10 ml 01/22/19 22:00 01/23/19 22:18 Sodium Chloride Flush Syringe 10 Ml IV 10 ml BID RUFUS Administration Sodium Chloride 10 ml 01/22/19 21:02 Sodium Chloride Flush Syringe 10 Ml IV PRN PRN LINE FLUSH Spironolactone 25 mg 01/22/19 21:00 01/23/19 09:52 Aldactone PO 25 mg QDAY RUFUS Administration Tamsulosin HCl 0.4 mg 01/22/19 22:00 01/23/19 22:15 Flomax PO 0.4 mg HS RUFUS Administration
--- NOTE | 2019-01-24 11:21 | Progress Note ---
Assessment and Plan Patient is s/p Lexiscan stress test. Discussed findings with patient and explained need for coronary angiography and a permanent ICD in the future. Explained that options are to undergo a cardiac catheterization during this hospitalization, or wait until medical records from other facilities are available for review in order to evaluate previous cardiac catheterization. After consideration, patient opted for cardiac catheterization while here. The procedure is tentatively scheduled for tomorrow. Findings will guide timing of ICD placement. The patient has been seen in conjunction with Dr. Robles, who agrees with assessment and plan. - Patient Problems (1) Acute heart failure Current Visit: Yes Status: Acute (2) Chest pain Current Visit: Yes Status: Acute Qualifiers: Chest pain type: unspecified Qualified Code(s): R07.9 - Chest pain, unspecified (3) Coronary artery disease Current Visit: Yes Status: Chronic Qualifiers: Coronary Disease-Associated Artery/Lesion type: [place] artery [place] vs. t ransplanted heart: [place] heart (4) Hypertension Current Visit: Yes Status: Chronic Qualifiers: Hypertension type: essential hypertension Qualified Code(s): I10 - Essential (primary) hypertension (5) Cardiomyopathy Current Visit: Yes Status: Chronic (6) COPD with acute exacerbation Current Visit: Yes Status: Acute (7) CKD (chronic kidney disease) Current Visit: Yes Status: Chronic (8) Hyperlipidemia Current Visit: Yes Status: Chronic Qualifiers: Hyperlipidemia type: mixed hyperlipidemia Qualified Code(s): E78.2 - Mixed hyperlipidemia Subjective Date of service: 01/24/19 Interval history: Patient is s/p Lexiscan stress test. C/O SOB during test, but denies CP. Stress test on 01/24/2019 found EF of 23% with an inferolateral infarct. No evidence of active ischemia. Objective Last Vital Signs Temp 97.5 F L 01/24/19 03:33 Pulse 93 H 01/24/19 03:33 Resp 18 01/24/19 03:33 BP 108/71 01/24/19 09:11 Pulse Ox 99 01/24/19 03:33 - Physical Examination General: No Apparent Distress HEENT: Positive: PERRL, Normocephaly, Mucus Membranes Moist Neck: Positive: neck supple, trachea midline Cardiac: Positive: Reg Rate and Rhythm Lungs: Positive: Normal Exam Neuro: Positive: Grossly Intact Abdomen: Positive: Unremarkable. Negative: Tender /Rectal: Other (Deferred) Skin: Positive: Clear. Negative: Rash Musculoskeletal: No Pain Extremities: Present: normal. Absent: edema - Labs and Meds Comprehensive Metabolic Panel 01/24/19 01/24/19 Range/Units 05:22 07:09 Sodium 138 139 (137-145) mmol/L Potassium 4.8 4.7 (3.6-5.0) mmol/L Chloride 102.6 100.7 (98-107) mmol/L Carbon Dioxide 26 26 (22-30) mmol/L BUN 23 H 23 H (9-20) mg/dL Creatinine 1.3 1.3 (0.8-1.5) mg/dL Glucose 183 H 156 H (75-100) mg/dL Calcium 9.5 10.0 (8.4-10.2) mg/dL - Imaging and Cardiology EKG: report reviewed, image reviewed Pharmacologic stress test: report reviewed (EF of 23%, inferolateral infarct, no evidence of active ischemia) Echo: pending - EKG Sinus rhythms and dysrhythmias: sinus rhythm AV and intraventricular conduction: intraventricular conducti
[2019-01-24] MEDS: VITAMIN B-12 PO SCH (13:11)
[2019-01-24] MEDS: APRESOLINE PO SCH ×3 (13:12→21:51)
[2019-01-24] MEDS: HALFPRIN EC PO SCH (13:12)
[2019-01-24] MEDS: CLARITIN PO SCH (13:12)
[2019-01-24] MEDS: K-DUR PO SCH ×2 (13:12→21:51)
[2019-01-24] MEDS: PROSCAR PO SCH (13:13)
[2019-01-24] MEDS: COREG PO SCH ×2 (13:13→21:52)
[2019-01-24] MEDS: PEPCID IV SCH ×2 (13:13→21:51)
[2019-01-24] MEDS: SOLU-Medrol IV SCH ×2 (13:14→21:51)
[2019-01-24] MEDS: SODIUM CHLORIDE FLUSH SYRINGE 10 ML IV SCH ×2 (13:14→21:53)
[2019-01-24] MEDS: LEVAQUIN 750MG/150ML 750 MG/150 ML BAG IV SCH (13:14)
[2019-01-24] MEDS: ALDACTONE PO SCH (13:23)
[2019-01-24] MEDS: FLONASE NS SCH (13:24)
[2019-01-24] MEDS: ISORDIL TITRADOSE PO SCH ×3 (13:25→21:50)
[2019-01-24] MEDS: SINGULAIR PO SCH (18:30)
[2019-01-24] MEDS: FLOMAX PO SCH (21:51)
[2019-01-24] MEDS: LOVENOX SUB-Q SCH (21:51)
--- NOTE | 2019-01-25 00:19 | Treadmill Report ---
NUCLEAR CARDIAC IMAGING REPORT INDICATIONS FOR PROCEDURE: Chest pain, shortness of breath, heart failure. Informed consent was obtained. DESCRIPTION OF PROCEDURE: Vasodilator stress was achieved with the intravenous administration of 0.4 mg of Lexiscan per protocol. Rest and stress nuclear cardiac imaging was performed following the intravenous administration of technetium-99m Myoview per protocol. Images were acquired in a 180-degree arc from 45 degrees [place] to 45 degrees LPO. After data acquisition and reconstruction, the images were processed and reoriented into the vertical long, horizontal long and horizontal short axis slices. A polar color map of the horizontal short axis slices was generated and reviewed. The rotating planar images reviewed in cinematic format on the computer console. Gated SPECT imaging demonstrates a post-stress left ventricular ejection fraction of 23%. The left ventricle is dilated with an end systolic volume of 213 mL. The left ventricle is diffusely severely hypokinetic. A small region of the inferoapical wall appears to be akinetic. Myocardial perfusion imaging demonstrates no significant cavity change between stress and rest. A small moderately intense persistent inferoapical wall perfusion defect is present. Nuclear cardiac imaging demonstrates severe left ventricular systolic dysfunction with evidence of prior inferoapical wall myocardial necrosis. A significant degree of ischemia is not seen. [facility]# [id number] ALAYNA/ENDY
[2019-01-25 01:41] LABS: INR 1.14 (0.87-1.13)
[2019-01-25] MEDS: PROVENTIL IH SCH ×4 (03:24→22:27)
[2019-01-25] MEDS: LASIX IV SCH (05:39)
[2019-01-25 07:09] LABS: Calcium 9.4 mg/dL (8.4-10.2)
[2019-01-25] MEDS ORDERED: HALFPRIN EC PO ONE (07:36)
[2019-01-25] MEDS: HALFPRIN EC PO SCH ×2 (07:44→10:00)
[2019-01-25] MEDS ORDERED: NACL 0.9% 500 ML 500 ML IV SCH (08:00)
[2019-01-25] MEDS ORDERED: HEPARIN 10,000 UNITS/10 ML ONE (08:17)
[2019-01-25] MEDS ORDERED: XYLOCAINE 2% INFILTRATI ONE (08:17)
[2019-01-25] MEDS ORDERED: HEPARIN/NS 5000 UNIT/500ML(CATH LAB) 1,000 ML IR ONE (08:17)
[2019-01-25] MEDS ORDERED: CALAN ONE (08:18)
[2019-01-25] MEDS ORDERED: VERSED ONE (08:18)
[2019-01-25] MEDS ORDERED: SUBLIMAZE ONE (08:18)
[2019-01-25] MEDS: PULMICORT IH SCH ×2 (09:20→22:30)
[2019-01-25] MEDS: BROVANA NEBU IH SCH ×2 (09:20→22:27)
--- NOTE | 2019-01-25 10:14 | Progress Note ---
Assessment and Plan Medical records obtained - pt underwent LHC at [facility] on 01/03/2019 which showed mild CAD (normal left main, prox LAD 20%, first obtuse marginal 10%, second obtuse marginal 10%, prox RCA 50%). No plans for repeat LHC at this time. Echo reviewed - EF 25-30%, LV mod dilated, pseudonormalization, LA mildly dilated, RA mod dilated, moderately severe MR, mildly dilated RV, mild TR. Initiate losartan. Pt appears to be nearing/at euvolemia. Convert IV lasix to PO lasix. Cardiac defibrillator is recommended in setting of NICMP and NSVT. Pt has worn LifeVest in the past and did not like wearing the vest. He is requesting EP consultation for possible AICD implantation as inpatient during this admission. He states that if he is unable to undergo AICD implantation during this admission, he is agreeable to wear LifeVest at discharge while awaiting AICD implantation as OP. LifeVest ordered. EP consulted, await recs. The patient has been seen in conjunction with Dr. Robles who agrees with the assessment and plan of care. 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 transplanted heart: [place] heart (6) Hyperlipidemia Current Visit: Yes Status: Chronic Qualifiers: Hyperlipidemia type: mixed hyperlipidemia Qualified Code(s): E78.2 - Mixed hyperlipidemia (7) Hypertension Current Visit: Yes Status: Chronic Qualifiers: Hypertension type: essential hypertension Qualified Code(s): I10 - Essential (primary) hypertension (8) CKD (chronic kidney disease) Current Visit: Yes Status: Chronic (9) NSVT (nonsustained ventricular tachycardia) Current Visit: Yes Status: Acute Subjective Date of service: 01/25/19 Principal diagnosis: HF Interval history: pt resting at bedside, no current cardiac complaints. LHC cancelled as cath report from [facility] was obtained. Objective Last Vital Signs Temp 97.6 F 01/25/19 04:10 Pulse 88 01/25/19 10:00 Resp 20 01/25/19 09:30 BP 123/75 01/25/19 04:09 Pulse Ox 98 01/25/19 09:20 - Physical Examination General: No Apparent Distress HEENT: Positive: PERRL, Normocephaly, Mucus Membranes Moist Neck: Positive: neck supple, trachea midline Cardiac: Positive: Reg Rate and Rhythm, S1/S2 Lungs: Positive: Decreased Breath Sounds Neuro: Positive: Grossly Intact Abdomen: Positive: Unremarkable. Negative: Tender /Rectal: Other (Deferred) Skin: Positive: Clear. Negative: Rash Musculoskeletal: No Pain Extremities: Present: normal. Absent: edema - Labs and Meds Coagulation 01/25/19 Range/Units 00:45 PT 14.3 (12.2-14.9) Sec. INR 1.14 H (0.87-1.13) Comprehensive Metabolic Panel 01/25/19 Range/Units 05:39 Sodium 138 (137-145) mmol/L Potassium 5.0 (3.6-5.0) mmol/L Chloride 101.2 (98-107) mmol/L Carbon Dioxide 27 (22-30) mmol/L BUN 29 H (9-20) mg/dL Creatinine 1.5 (0.8-1.5) mg/dL Glucose 233 H (75-100) mg/dL Calcium 9.4 (8.4-10.2) mg/dL - Imaging and Cardiology EKG: report reviewed, image reviewed Echo: report reviewed ( EF 25-30%, LV mod dilated, pseudonormalization, LA mildly dilated, RA mod dilated, moderately severe MR, mildly dilated RV, mild TR. ) Cardiac cath: report reviewed (LHC at [facility] on 01/03/2019 which showed mild CAD (normal left main, prox LAD 20%, first obtuse marginal 10%, second obtuse marginal 10%, prox RCA 50%). ) - Telemetry EKG Rhythm: Sinus Rhythm - EKG Sinus rhythms and dysrhythmias: sinus rhythm AV and intraventricular conduction: intraventricular conducti
[2019-01-25] MEDS ORDERED: COZAAR PO SCH (11:00)
[2019-01-25] MEDS: VITAMIN B-12 PO SCH (11:20)
[2019-01-25] MEDS: PEPCID IV SCH ×2 (11:20→21:58)
[2019-01-25] MEDS: LEVAQUIN 750MG/150ML 750 MG/150 ML BAG IV SCH (11:20)
[2019-01-25] MEDS: ALDACTONE PO SCH (11:22)
[2019-01-25] MEDS: PROSCAR PO SCH (11:23)
[2019-01-25] MEDS: COREG PO SCH ×2 (11:36→21:58)
[2019-01-25] MEDS: CLARITIN PO SCH (11:36)
[2019-01-25] MEDS: SODIUM CHLORIDE FLUSH SYRINGE 10 ML IV SCH ×2 (11:37→22:13)
[2019-01-25] MEDS: FLONASE NS SCH (11:37)
[2019-01-25] MEDS: SOLU-Medrol IV SCH ×2 (11:47→22:05)
[2019-01-25] MEDS: K-DUR PO SCH ×2 (11:47→22:12)
[2019-01-25] MEDS: COZAAR PO SCH (11:47)
--- NOTE | 2019-01-25 11:54 | Vascular Lab Report ---
DUPLEX DOPPLER RIGHT LOWER EXTREMITY VEINS INDICATION: pain in his leg, hx of blood clot FINDINGS: There is no thrombus within the deep veins of the right lower extremity from the common femoral to th e calf veins. There is normal compression and augmentation on spectral analysis. IMPRESSION: No sonographic evidence for DVT in the right lower extremity. Signer Name: Graeme Davis MD Signed: 01/25/2019 11:50 AM Workstation Name: [id number]
--- NOTE | 2019-01-25 13:03 | Progress Note ---
Assessment and Plan Assessment and plan: (1) chronic systolic CHF with exacerbation IV Lasix 40 mg every 12 Daily weights Daily intake and output Echocardiogram showed 25-30% Cardiology consult appreciated Patient will have EP consult and if AICD is not placed as inpatient, patient will go with life vest (2) Chest pain Troponins were negative stress test will be done today (3) COPD with acute exacerbation Nebulizer treatments with albuterol and ipratropium IV Solu-Medrol and IV Levaquin BiPAP if necessary (4) BPH (benign prostatic hyperplasia) Continue tamsulosin and Proscar (5) Hypertension Continue antihypertensives (6) Hyperlipidemia Continue statins (7) Coronary artery disease Continue Isordil and aspirin (8) Hypokalemia Supplemented (9) DVT prophylaxis On Lovenox and GI prophylaxis Disposition: continue inpatient care. patient need AICD, EP consult, patient will need lifevest History Interval history: Patient was seen and evaluated this morning, patient said SOB getting better. No chest pain Hospitalist Physical - Physical exam Narrative exam: Not in cardiopulmonary distress. The patient is obese. Vital signs as documented. Head exam is unremarkable. No scleral icterus . Neck is without jugular venous distension, thyromegaly, or carotid bruits. Lungs are clear to auscultation. Cardiac exam reveals regular rate and Rhythm. Abdominal exam reveals normal bowel sounds, no masses, no organomegaly and no aortic enlargement. Extremities are nonedematous and both femoral and pedal pulses are normal. DIRECTOR OF PHARMACY: Alert and oriented 3. No focal weakness. - Constitutional Vitals: Temp Pulse Resp BP Pulse Ox 97.6 F 88 20 123/75 100 01/25/19 04:10 01/25/19 11:47 01/25/19 10:00 01/25/19 04:09 01/25/19 10:00 General appearance: Present: no acute distress Results - Labs CBC & Chem 7: 01/23/19 05:47 01/25/19 05:39 Labs: Laboratory Last Values WBC 14.1 K/mm3 (4.5-11.0) H 01/23/19 05:47 RBC 3.72 M/mm3 (3.65-5.03) 01/23/19 05:47 Hgb 11.8 gm/dl (11.8-15.2) 01/23/19 05:47 Hct 35.3 % (35.5-45.6) L 01/23/19 05:47 MCV 95 fl (84-94) H 01/23/19 05:47 MCH 32 pg (28-32) 01/23/19 05:47 MCHC 33 % (32-34) 01/23/19 05:47 RDW 14.2 % (13.2-15.2) 01/23/19 05:47 Plt Count 283 K/mm3 (140-440) 01/23/19 05:47 Lymph % (Auto) 4.1 % (13.4-35.0) L 01/22/19 03:40 [place] % (Auto) 10.1 % (0.0-7.3) H 01/22/19 03:40 Eos % (Auto) 0.2 % (0.0-4.3) 01/22/19 03:40 Baso % (Auto) 0.1 % (0.0-1.8) 01/22/19 03:40 Lymph # 0.6 K/mm3 (1.2-5.4) L 01/22/19 03:40 [place] # 1.5 K/mm3 (0.0-0.8) H 01/22/19 03:40 Eos # 0.0 K/mm3 (0.0-0.4) 01/22/19 03:40 Baso # 0.0 K/mm3 (0.0-0.1) 01/22/19 03:40 Add Manual Diff Complete 01/23/19 05:47 Total Counted 100 01/23/19 05:47 Seg Neutrophils % 85.5 % (40.0-70.0) H 01/22/19 03:40 Seg Neuts % (Manual) 95.0 % (40.0-70.0) H 01/23/19 05:47 0 % 01/23/19 05:47 4.0 % (13.4-35.0) L 01/23/19 05:47 Reactive Lymphs % (Man) 0 % 01/23/19 05:47 1.0 % (0.0-7.3) 01/23/19 05:47 0 % (0.0-4.3) 01/23/19 05:47 0 % (0.0-1.8) 01/23/19 05:47 0 % 01/23/19 05:47 0 % 01/23/19 05:47 0 % 01/23/19 05:47 0 % 01/23/19 05:47 Nucleated RBC % Not Reportable 01/23/19 05:47 Seg Neutrophils # 12.8 K/mm3 (1.8-7.7) H 01/22/19 03:40 Seg Neutrophils # Man 13.4 K/mm3 (1.8-7.7) H 01/23/19 05:47 Band Neutrophils # 0.0 K/mm3 01/23/19 05:47 0.6 K/mm3 (1.2-5.4) L 01/23/19 05:47 Abs React Lymphs (Man) 0.0 K/mm3 01/23/19 05:47 0.1 K/mm3 (0.0-0.8) 01/23/19 05:47 0.0 K/mm3 (0.0-0.4) 01/23/19 05:47 0.0 K/mm3 (0.0-0.1) 01/23/19 05:47 0.0 K/mm3 01/23/19 05:47 0.0 K/mm3 01/23/19 05:47 0.0 K/mm3 01/23/19 05:47 Blast Cells # 0.0 K/mm3 01/23/19 05:47 WBC Morphology Not Reportable 01/23/19 05:47 Hypersegmented Neuts Not Reportable 01/23/19 05:47 Hyposegmented Neuts Not Reportable 01/23/19 05:47 Hypogranular Neuts Not Reportable 01/23/19 05:47 Not Reportable 01/23/19 05:47 Not Reportable 01/23/19 05:47 Not Reportable 01/23/19 05:47 Not Reportable 01/23/19 05:47 Not Reportable 01/23/19 05:47 Not Reportable 01/23/19 05:47 Consistent w auto 01/23/19 05:47 Not Reportable 01/23/19 05:47 Plt Clumps, EDTA Not Reportable 01/23/19 05:47 Rare 01/23/19 05:47 Not Reportable 01/23/19 05:47 Not Reportable 01/23/19 05:47 Plt Morphology Comment Not Reportable 01/23/19 05:47 RBC Morphology Normal 01/23/19 05:47 Dimorphic RBCs Not Reportable 01/23/19 05:47 Not Reportable 01/23/19 05:47 Not Reportable 01/23/19 05:47 Not Reportable 01/23/19 05:47 Not Reportable 01/23/19 05:47 Not Reportable 01/23/19 05:47 Not Reportable 01/23/19 05:47 Not Reportable 01/23/19 05:47 Not Reportable 01/23/19 05:47 Not Reportable 01/23/19 05:47 Not Reportable 01/23/19 05:47 Not Reportable 01/23/19 05:47 Not Reportable 01/23/19 05:47 Not Reportable 01/23/19 05:47 Not Reportable 01/23/19 05:47 Not Reportable 01/23/19 05:47 Not Reportable 01/23/19 05:47 Not Reportable 01/23/19 05:47 Not Reportable 01/23/19 05:47 Not Reportable 01/23/19 05:47 Acanthocytes (Spur) Not Reportable 01/23/19 05:47 Rouleaux Not Reportable 01/23/19 05:47 Not Reportable 01/23/19 05:47 Not Reportable 01/23/19 05:47 Not Reportable 01/23/19 05:47 Not Reportable 01/23/19 05:47 Hem Pathologist Commnt No 01/23/19 05:47 PT 14.3 Sec. (12.2-14.9) 01/25/19 00:45 INR 1.14 (0.87-1.13) H 01/25/19 00:45 341.68 ng/mlDDU (0-234) H 01/22/19 07:08 Sodium 138 mmol/L (137-145) 01/25/19 05:39 Potassium 5.0 mmol/L (3.6-5.0) 01/25/19 05:39 Chloride 101.2 mmol/L (98-107) 01/25/19 05:39 Carbon Dioxide 27 mmol/L (22-30) 01/25/19 05:39 15 mmol/L 01/25/19 05:39 BUN 29 mg/dL (9-20) H 01/25/19 05:39 1.5 mg/dL (0.8-1.5) 01/25/19 05:39 Estimated GFR 58 ml/min 01/25/19 05:39 19 % 01/25/19 05:39 Glucose 233 mg/dL (75-100) H 01/25/19 05:39 5.1 % (4-6) 01/22/19 21:50 Calcium 9.4 mg/dL (8.4-10.2) 01/25/19 05:39 0.30 mg/dL (0.1-1.2) 01/23/19 05:47 AST 13 units/L (5-40) 01/23/19 05:47 ALT 6 units/L (7-56) L 01/23/19 05:47 86 units/L (35-129) 01/23/19 05:47 < 0.010 ng/mL (0.00-0.029) 01/22/19 08:30 NT-Pro-B Natriuret Pep 3501 pg/mL (0-900) H 01/22/19 07:08 7.2 g/dL (6.3-8.2) 01/23/19 05:47 3.8 g/dL (3.9-5) L 01/23/19 05:47 1.1 % 01/23/19 05:47 Active Medications - Current Medications Current Medications: Generic Name Dose Route Start Last Admin Trade Name Freq PRN Reason Stop Dose Admin Acetaminophen 650 mg 01/22/19 21:02 Tylenol PO Q4H PRN Pain MILD(1-3)/Fever >100.5/HUITRON Albuterol 2.5 mg 01/24/19 14:15 01/25/19 09:21 Proventil IH Not Given Q6HRT RUFUS Arformoterol Tartrate 15 mcg 01/22/19 22:00 01/25/19 09:20 Brovana Nebu IH 15 mcg Q12HRT RUFUS Administration Aspirin 81 mg 01/22/19 21:00 01/25/19 10:00 Halfprin Ec PO Not Given QDAY RUFUS Atorvastatin Calcium 20 mg 01/22/19 20:30 01/25/19 11:21 Lipitor PO 20 mg DAILY RUFUS Administration Budesonide 0.5 mg 01/24/19 14:09 01/25/19 09:20 Pulmicort IH 0.5 mg Q12HRT RUFUS Administration Carvedilol 12.5 mg 01/22/19 22:00 01/25/19 11:36 Coreg PO 12.5 mg BID RUFUS Administration Cyanocobalamin 2,000 mcg 01/22/19 21:00 01/25/19 11:20 Vitamin B-12 PO 2,000 mcg DAILY RUFUS Administration Enoxaparin Sodium 40 mg 01/22/19 22:00 01/24/19 21:51 Lovenox SUB-Q 40 mg QDAY@2200 RUFUS Administration Famotidine 20 mg 01/22/19 22:00 01/25/19 11:20 Pepcid IV 20 mg BID RUFUS Administration Finasteride 5 mg 01/22/19 21:00 01/25/19 11:23 Proscar PO 5 mg QDAY RUFUS Administration Fluticasone Propionate 100 mcg 01/22/19 21:00 01/25/19 11:37 Flonase NS 100 mcg QDAY RUFUS Administration Furosemide 40 mg 01/26/19 10:00 Lasix PO QDAY RUFUS Hydromorphone HCl 0.5 mg 01/22/19 21:02 Dilaudid IV Q3H PRN Pain , Severe (7-10) Levofloxacin/Dextrose 750 mg in 150 mls @ 100 mls/hr 01/22/19 22:00 01/25/19 11:20 Levaquin 750mg/150ml IV 100 mls/hr Q24HR RUFUS Administration Protocol Sodium Chloride 500 mls @ 50 mls/hr 01/25/19 08:00 01/25/19 07:48 Nacl 0.9% 500 Ml IV 50 mls/hr DIRECT RUFUS Administration Loratadine 10 mg 01/22/19 21:00 01/25/19 11:36 Claritin PO 10 mg DAILY RUFUS Administration Losartan Potassium 25 mg 01/25/19 11:00 01/25/19 11:47 Cozaar PO 25 mg QDAY RUFUS Administration Methylprednisolone Sodium Succinate 40 mg 01/22/19 22:00 01/25/19 11:47 Solu-Medrol IV 40 mg Q12H RUFUS Administration Montelukast Sodium 10 mg 01/23/19 18:00 01/24/19 18:30 Singulair PO 10 mg QPM RUFUS Administration Ondansetron HCl 4 mg 01/22/19 21:02 Zofran IV Q8H PRN Nausea And Vomiting Oxycodone/Acetaminophen 1 tab 01/22/19 21:02 Percocet 5/325 PO Q6H PRN Pain, Moderate (4-6) Potassium Chloride 20 meq 01/22/19 22:00 01/25/19 11:47 K-Dur PO 20 meq Q12H RUFUS Administration Sodium Chloride 10 ml 01/22/19 22:00 01/25/19 11:37 Sodium Chloride Flush Syringe 10 Ml IV 10 ml BID RUFUS Administration Sodium Chloride 10 ml 01/22/19 21:02 Sodium Chloride Flush Syringe 10 Ml IV PRN PRN LINE FLUSH Spironolactone 25 mg 01/22/19 21:00 01/25/19 11:22 Aldactone PO 25 mg QDAY RUFUS Administration Tamsulosin HCl 0.4 mg 01/22/19 22:00 01/24/19 21:51 Flomax PO 0.4 mg HS RUFUS Administration
--- NOTE | 2019-01-25 13:35 | Event Note ---
Date: 01/25/19 EP Note/Consult 58 Male DCM EF 25% Nonsustained VT HFrEF Lengthy discussion with patient regarding the risk and benefits of BiV cardiac defibrillator implantation. Patient agrees to proceed we will schedule him on January 29. I spoke with the patient he was wondering if he can be discharged home and have the procedure as an outpatient. We'll discuss this in further detail with the primary team.
[2019-01-25] MEDS: SINGULAIR PO SCH (18:05)
[2019-01-25] MEDS: FLOMAX PO SCH (21:58)
[2019-01-25] MEDS: LOVENOX SUB-Q SCH (21:58)
[2019-01-26] MEDS: PROVENTIL IH SCH ×4 (03:35→20:38)
[2019-01-26 06:14] LABS: BUN/Creatinine Ratio 18; Blood Urea Nitrogen 24 mg/dL (9-20); Calcium 9.3 mg/dL (8.4-10.2); Hemolysis Index 8
[2019-01-26] MEDS: BROVANA NEBU IH SCH ×2 (08:41→20:38)
[2019-01-26] MEDS: PULMICORT IH SCH ×2 (08:42→20:38)
--- NOTE | 2019-01-26 10:13 | Progress Note ---
Assessment and Plan Cardiac status remains stable. Continue current management. Patient frustrated about wearing LifeVest. Spent >15 minutes discussing the importance of wearing the device and remaining in the hospital for ICD placement, planned for 01/29/19. After discussion, he is amenable to wearing the LifeVest and following through with the procedure. He also wishes to start Entresto at discharge - will evaluate further at that time. Patient has been seen in conjunction with Dr. Parker, who agrees with assessment and plan. - Patient Problems (1) Acute heart failure Current Visit: Yes Status: Acute (2) Chest pain Current Visit: Yes Status: Resolved Qualifiers: Chest pain type: unspecified Qualified Code(s): R07.9 - Chest pain, unspec ified (3) Coronary artery disease Current Visit: Yes Status: Chronic Qualifiers: Coronary Disease-Associated Artery/Lesion type: [place] artery [place] vs. transplanted heart: [place] heart (4) Hypertension Current Visit: Yes Status: Chronic Qualifiers: Hypertension type: essential hypertension Qualified Code(s): I10 - Essential (primary) hypertension (5) Cardiomyopathy Current Visit: Yes Status: Chronic (6) COPD with acute exacerbation Current Visit: Yes Status: Acute (7) CKD (chronic kidney disease) Current Visit: Yes Status: Chronic (8) Hyperlipidemia Current Visit: Yes Status: Chronic Qualifiers: Hyperlipidemia type: mixed hyperlipidemia Qualified Code(s): E78.2 - Mixed hyperlipidemia Subjective Date of service: 01/26/19 Principal diagnosis: HF Interval history: Patient sitting up in chair, getting established with LifeVest. He is anxious and frustrated, stating, "as soon as she [the LifeVest rep] leaves the room, it's coming off. I'm leaving and going home because my family is gone." He also reports some shortness of breath. ST with rates in the 100s with a run of VT lasting approximately 10 seconds noted on 01/25 noted on telemetry. Objective Vital Signs Temp Pulse Pulse Pulse Resp Resp Resp 01/26/19 09:12 97.5 F L 73 16 01/26/19 04:51 97.5 F L 01/26/19 04:50 84 20 01/26/19 00:18 20 01/26/19 00:05 97.7 F 65 18 01/26/19 00:02 18 01/25/19 22:49 91 H 13 01/25/19 22:30 94 H 16 01/25/19 22:00 01/25/19 20:40 83 01/25/19 19:34 97.5 F L 01/25/19 19:32 83 18 01/25/19 16:24 98.9 F 98 H 20 01/25/19 14:26 88 20 01/25/19 14:16 89 20 01/25/19 11:47 88 01/25/19 11:45 99.7 F H 79 20 01/25/19 11:36 88 BP BP Pulse Ox 01/26/19 09:12 122/72 100 01/26/19 04:51 01/26/19 04:50 137/88 99 01/26/19 00:18 98 01/26/19 00:05 109/70 99 01/26/19 00:02 109/70 01/25/19 22:49 01/25/19 22:30 01/25/19 22:00 100 01/25/19 20:40 01/25/19 19:34 01/25/19 19:32 124/69 100 01/25/19 16:24 129/84 99 01/25/19 14:26 01/25/19 14:16 01/25/19 11:47 01/25/19 11:45 129/79 99 01/25/19 11:36 - Physical Examination General: No Apparent Distress HEENT: Positive: PERRL, Normocephaly, Mucus Membranes Moist Neck: Positive: neck supple, trachea midline Cardiac: Positive: Regular Rhythm Lungs: Positive: Normal Exam Neuro: Positive: Grossly Intact Abdomen: Positive: Unremarkable. Negative: Tender /Rectal: Other (Deferred) Skin: Positive: Clear. Negative: Rash Musculoskeletal: No Pain Extremities: Present: normal, +1 Edema. Absent: edema - Labs and Meds Comprehensive Metabolic Panel 01/26/19 Range/Units 04:44 Sodium 136 L (137-145) mmol/L Potassium 5.2 H (3.6-5.0) mmol/L Chloride 99.6 (98-107) mmol/L Carbon Dioxide 28 (22-30) mmol/L BUN 24 H (9-20) mg/dL Creatinine 1.3 (0.8-1.5) mg/dL Glucose 356 H (75-100) mg/dL Calcium 9.3 (8.4-10.2) mg/dL - Imaging and Cardiology EKG: report reviewed, image reviewed Echo: report reviewed ( EF 25-30%, LV mod dilated, pseudonormalization, LA mildly dilated, RA mod dilated, moderately severe MR, mildly dilated RV, mild TR. ) Cardiac cath: report reviewed (LHC at [facility] on 01/03/2019 which showed mild CAD (normal left main, prox LAD 20%, first obtuse marginal 10%, second obtuse marginal 10%, prox RCA 50%). ) - Telemetry EKG Rhythm: Sinus Tachycardia - EKG Sinus rhythms and dysrhythmias: sinus rhythm AV and intraventricular conduction: intraventricular conducti
[2019-01-26] MEDS: PEPCID IV SCH ×2 (10:17→21:07)
[2019-01-26] MEDS: ALDACTONE PO SCH (10:17)
[2019-01-26] MEDS: COZAAR PO SCH (10:17)
[2019-01-26] MEDS: VITAMIN B-12 PO SCH (10:17)
[2019-01-26] MEDS: PROSCAR PO SCH (10:17)
[2019-01-26] MEDS: HALFPRIN EC PO SCH (10:18)
[2019-01-26] MEDS: CLARITIN PO SCH (10:18)
[2019-01-26] MEDS: LASIX PO SCH (10:18)
[2019-01-26] MEDS: LEVAQUIN 750MG/150ML 750 MG/150 ML BAG IV SCH (10:19)
[2019-01-26] MEDS: COREG PO SCH ×2 (10:19→21:07)
[2019-01-26] MEDS: SOLU-Medrol IV SCH (10:30)
[2019-01-26] MEDS: SODIUM CHLORIDE FLUSH SYRINGE 10 ML IV SCH ×2 (10:30→21:11)
[2019-01-26] MEDS: K-DUR PO SCH (10:30)
[2019-01-26] MEDS: FLONASE NS SCH (10:31)
[2019-01-26] MEDS ORDERED: SOLU-Medrol IV SCH (14:11)
--- NOTE | 2019-01-26 14:12 | Progress Note ---
Assessment and Plan Assessment and plan: Chronic systolic CHF with exacerbation IV Lasix 40 mg every 12 Daily weights Daily intake and output Echocardiogram showed 25-30% Cardiology consulted and with lengthy discussion with patient regarding the risk and benefits of BiV cardiac defibrillator implantation. Patient agrees to proceed and is scheduled for January 29. Chest pain Troponins were negative stress test will be done today COPD with acute exacerbation Nebulizer treatments with albuterol and ipratropium, taper IV Solu-Medrol. On IV Levaquin BiPAP if necessary BPH (benign prostatic hyperplasia) Continue tamsulosin and Proscar Hypertension Continue antihypertensives Hyperlipidemia Continue statins Coronary artery disease Continue Isordil and aspirin Hyperkalemia Stop KCL supplementation DVT prophylaxis On Lovenox Disposition. patient reportedly received lifevest History Interval history: No new issues overnight Hospitalist Physical - Constitutional Vitals: Temp Pulse Resp BP Pulse Ox 97.5 F L 82 20 122/72 100 01/26/19 09:12 01/26/19 13:25 01/26/19 13:25 01/26/19 10:17 01/26/19 10:00 General appearance: Present: no acute distress - EENT Eyes: Present: PERRL, EOM intact ENT: hearing intact, clear oral mucosa, dentition normal - Neck Neck: Present: supple, normal ROM - Respiratory Respiratory effort: normal Respiratory: bilateral: CTA - Cardiovascular Rhythm: regular Heart Sounds: Present: S1 & S2. Absent: gallop, rub - Extremities Extremities: no ischemia, No edema, Full ROM - Abdominal General gastrointestinal: soft, non-tender, non-distended, normal bowel sounds - Integumentary Integumentary: Present: clear, warm, dry - Neurologic Neurologic: CNII-XII intact, moves all extremities Results - Labs CBC & Chem 7: 01/23/19 05:47 01/26/19 04:44 Labs: Laboratory Last Values WBC 14.1 K/mm3 (4.5-11.0) H 01/23/19 05:47 RBC 3.72 M/mm3 (3.65-5.03) 01/23/19 05:47 Hgb 11.8 gm/dl (11.8-15.2) 01/23/19 05:47 Hct 35.3 % (35.5-45.6) L 01/23/19 05:47 MCV 95 fl (84-94) H 01/23/19 05:47 MCH 32 pg (28-32) 01/23/19 05:47 MCHC 33 % (32-34) 01/23/19 05:47 RDW 14.2 % (13.2-15.2) 01/23/19 05:47 Plt Count 283 K/mm3 (140-440) 01/23/19 05:47 Lymph % (Auto) 4.1 % (13.4-35.0) L 01/22/19 03:40 [place] % (Auto) 10.1 % (0.0-7.3) H 01/22/19 03:40 Eos % (Auto) 0.2 % (0.0-4.3) 01/22/19 03:40 Baso % (Auto) 0.1 % (0.0-1.8) 01/22/19 03:40 Lymph # 0.6 K/mm3 (1.2-5.4) L 01/22/19 03:40 [place] # 1.5 K/mm3 (0.0-0.8) H 01/22/19 03:40 Eos # 0.0 K/mm3 (0.0-0.4) 01/22/19 03:40 Baso # 0.0 K/mm3 (0.0-0.1) 01/22/19 03:40 Add Manual Diff Complete 01/23/19 05:47 Total Counted 100 01/23/19 05:47 Seg Neutrophils % 85.5 % (40.0-70.0) H 01/22/19 03:40 Seg Neuts % (Manual) 95.0 % (40.0-70.0) H 01/23/19 05:47 0 % 01/23/19 05:47 4.0 % (13.4-35.0) L 01/23/19 05:47 Reactive Lymphs % (Man) 0 % 01/23/19 05:47 1.0 % (0.0-7.3) 01/23/19 05:47 0 % (0.0-4.3) 01/23/19 05:47 0 % (0.0-1.8) 01/23/19 05:47 0 % 01/23/19 05:47 0 % 01/23/19 05:47 0 % 01/23/19 05:47 0 % 01/23/19 05:47 Nucleated RBC % Not Reportable 01/23/19 05:47 Seg Neutrophils # 12.8 K/mm3 (1.8-7.7) H 01/22/19 03:40 Seg Neutrophils # Man 13.4 K/mm3 (1.8-7.7) H 01/23/19 05:47 Band Neutrophils # 0.0 K/mm3 01/23/19 05:47 0.6 K/mm3 (1.2-5.4) L 01/23/19 05:47 Abs React Lymphs (Man) 0.0 K/mm3 01/23/19 05:47 0.1 K/mm3 (0.0-0.8) 01/23/19 05:47 0.0 K/mm3 (0.0-0.4) 01/23/19 05:47 0.0 K/mm3 (0.0-0.1) 01/23/19 05:47 0.0 K/mm3 01/23/19 05:47 0.0 K/mm3 01/23/19 05:47 0.0 K/mm3 01/23/19 05:47 Blast Cells # 0.0 K/mm3 01/23/19 05:47 WBC Morphology Not Reportable 01/23/19 05:47 Hypersegmented Neuts Not Reportable 01/23/19 05:47 Hyposegmented Neuts Not Reportable 01/23/19 05:47 Hypogranular Neuts Not Reportable 01/23/19 05:47 Not Reportable 01/23/19 05:47 Not Reportable 01/23/19 05:47 Not Reportable 01/23/19 05:47 Not Reportable 01/23/19 05:47 Not Reportable 01/23/19 05:47 Not Reportable 01/23/19 05:47 Consistent w auto 01/23/19 05:47 Not Reportable 01/23/19 05:47 Plt Clumps, EDTA Not Reportable 01/23/19 05:47 Rare 01/23/19 05:47 Not Reportable 01/23/19 05:47 Not Reportable 01/23/19 05:47 Plt Morphology Comment Not Reportable 01/23/19 05:47 RBC Morphology Normal 01/23/19 05:47 Dimorphic RBCs Not Reportable 01/23/19 05:47 Not Reportable 01/23/19 05:47 Not Reportable 01/23/19 05:47 Not Reportable 01/23/19 05:47 Not Reportable 01/23/19 05:47 Not Reportable 01/23/19 05:47 Not Reportable 01/23/19 05:47 Not Reportable 01/23/19 05:47 Not Reportable 01/23/19 05:47 Not Reportable 01/23/19 05:47 Not Reportable 01/23/19 05:47 Not Reportable 01/23/19 05:47 Not Reportable 01/23/19 05:47 Not Reportable 01/23/19 05:47 Not Reportable 01/23/19 05:47 Not Reportable 01/23/19 05:47 Not Reportable 01/23/19 05:47 Not Reportable 01/23/19 05:47 Not Reportable 01/23/19 05:47 Not Reportable 01/23/19 05:47 Acanthocytes (Spur) Not Reportable 01/23/19 05:47 Rouleaux Not Reportable 01/23/19 05:47 Not Reportable 01/23/19 05:47 Not Reportable 01/23/19 05:47 Not Reportable 01/23/19 05:47 Not Reportable 01/23/19 05:47 Hem Pathologist Commnt No 01/23/19 05:47 PT 14.3 Sec. (12.2-14.9) 01/25/19 00:45 INR 1.14 (0.87-1.13) H 01/25/19 00:45 341.68 ng/mlDDU (0-234) H 01/22/19 07:08 Sodium 136 mmol/L (137-145) L 01/26/19 04:44 Potassium 5.2 mmol/L (3.6-5.0) H 01/26/19 04:44 Chloride 99.6 mmol/L (98-107) 01/26/19 04:44 Carbon Dioxide 28 mmol/L (22-30) 01/26/19 04:44 14 mmol/L 01/26/19 04:44 BUN 24 mg/dL (9-20) H 01/26/19 04:44 1.3 mg/dL (0.8-1.5) 01/26/19 04:44 Estimated GFR > 60 ml/min 01/26/19 04:44 18 % 01/26/19 04:44 Glucose 356 mg/dL (75-100) H 01/26/19 04:44 5.1 % (4-6) 01/22/19 21:50 Calcium 9.3 mg/dL (8.4-10.2) 01/26/19 04:44 Magnesium 2.00 mg/dL (1.7-2.3) 01/25/19 14:57 0.30 mg/dL (0.1-1.2) 01/23/19 05:47 AST 13 units/L (5-40) 01/23/19 05:47 ALT 6 units/L (7-56) L 01/23/19 05:47 86 units/L (35-129) 01/23/19 05:47 < 0.010 ng/mL (0.00-0.029) 01/22/19 08:30 NT-Pro-B Natriuret Pep 3501 pg/mL (0-900) H 01/22/19 07:08 7.2 g/dL (6.3-8.2) 01/23/19 05:47 3.8 g/dL (3.9-5) L 01/23/19 05:47 1.1 % 01/23/19 05:47 Active Medications - Current Medications Current Medications: Generic Name Dose Route Start Last Admin Trade Name Freq PRN Reason Stop Dose Admin Acetaminophen 650 mg 01/22/19 21:02 Tylenol PO Q4H PRN Pain MILD(1-3)/Fever >100.5/HUITRON Albuterol 2.5 mg 01/24/19 14:15 01/26/19 13:15 Proventil IH 2.5 mg Q6HRT RUFUS Administration Arformoterol Tartrate 15 mcg 01/22/19 22:00 01/26/19 08:41 Brovana Nebu IH 15 mcg Q12HRT RUFUS Administration Aspirin 81 mg 01/22/19 21:00 01/26/19 10:18 Halfprin Ec PO 81 mg QDAY RUFUS Administration Atorvastatin Calcium 20 mg 01/22/19 20:30 01/26/19 10:18 Lipitor PO 20 mg DAILY RUFUS Administration Budesonide 0.5 mg 01/24/19 14:09 01/26/19 08:42 Pulmicort IH 0.5 mg Q12HRT RUFUS Administration Carvedilol 12.5 mg 01/22/19 22:00 01/26/19 10:19 Coreg PO 12.5 mg BID RUFUS Administration Cyanocobalamin 2,000 mcg 01/22/19 21:00 01/26/19 10:17 Vitamin B-12 PO 2,000 mcg DAILY RUFUS Administration Enoxaparin Sodium 40 mg 01/22/19 22:00 01/25/19 21:58 Lovenox SUB-Q 40 mg QDAY@2200 RUFUS Administration Famotidine 20 mg 01/22/19 22:00 01/26/19 10:17 Pepcid IV 20 mg BID RUFUS Administration Finasteride 5 mg 01/22/19 21:00 01/26/19 10:17 Proscar PO 5 mg QDAY RUFUS Administration Fluticasone Propionate 100 mcg 01/22/19 21:00 01/26/19 10:31 Flonase NS 100 mcg QDAY RUFUS Administration Furosemide 40 mg 01/26/19 10:00 01/26/19 10:18 Lasix PO 40 mg QDAY RUFUS Administration Hydromorphone HCl 0.5 mg 01/22/19 21:02 Dilaudid IV Q3H PRN Pain , Severe (7-10) Levofloxacin/Dextrose 750 mg in 150 mls @ 100 mls/hr 01/22/19 22:00 01/26/19 10:19 Levaquin 750mg/150ml IV 100 mls/hr Q24HR RUFUS Administration Protocol Sodium Chloride 500 mls @ 50 mls/hr 01/25/19 08:00 01/25/19 07:48 Nacl 0.9% 500 Ml IV 50 mls/hr DIRECT RUFUS Administration Loratadine 10 mg 01/22/19 21:00 01/26/19 10:18 Claritin PO 10 mg DAILY RUFUS Administration Losartan Potassium 25 mg 01/25/19 11:00 01/26/19 10:17 Cozaar PO 25 mg QDAY RUFUS Administration Methylprednisolone Sodium Succinate 40 mg 01/22/19 22:00 01/26/19 10:30 Solu-Medrol IV 40 mg Q12H RUFUS Administration Montelukast Sodium 10 mg 01/23/19 18:00 01/25/19 18:05 Singulair PO 10 mg QPM RUFUS Administration Ondansetron HCl 4 mg 01/22/19 21:02 Zofran IV Q8H PRN Nausea And Vomiting Oxycodone/Acetaminophen 1 tab 01/22/19 21:02 Percocet 5/325 PO Q6H PRN Pain, Moderate (4-6) Potassium Chloride 20 meq 01/22/19 22:00 01/26/19 10:30 K-Dur PO 20 meq Q12H RUFUS Administration Sodium Chloride 10 ml 01/22/19 22:00 01/26/19 10:30 Sodium Chloride Flush Syringe 10 Ml IV 10 ml BID RUFUS Administration Sodium Chloride 10 ml 01/22/19 21:02 Sodium Chloride Flush Syringe 10 Ml IV PRN PRN LINE FLUSH Spironolactone 25 mg 01/22/19 21:00 01/26/19 10:17 Aldactone PO 25 mg QDAY RUFUS Administration Tamsulosin HCl 0.4 mg 01/22/19 22:00 01/25/19 21:58 Flomax PO 0.4 mg HS RUFUS Administration
[2019-01-26] MEDS ORDERED: D50W (25GM) Syringe IV PRN (17:38)
[2019-01-26] MEDS: SINGULAIR PO SCH (18:24)
[2019-01-26] MEDS: APRESOLINE PO SCH (19:39)
[2019-01-26] MEDS: ISORDIL TITRADOSE PO SCH (19:40)
[2019-01-26] MEDS: LOVENOX SUB-Q SCH (21:07)
[2019-01-26] MEDS: FLOMAX PO SCH (21:07)
[2019-01-26] MEDS: HumaLOG SUB-Q SCH (22:38)
[2019-01-27] MEDS: PROVENTIL IH SCH ×4 (03:49→20:36)
[2019-01-27] MEDS: PULMICORT IH SCH ×2 (08:39→20:36)
[2019-01-27] MEDS: BROVANA NEBU IH SCH ×2 (08:39→20:36)
[2019-01-27] MEDS: FLONASE NS SCH (10:00)
[2019-01-27] MEDS: VITAMIN B-12 PO SCH (10:17)
[2019-01-27] MEDS: PEPCID IV SCH ×2 (10:17→22:03)
[2019-01-27] MEDS: COREG PO SCH ×2 (10:18→22:02)
[2019-01-27] MEDS: COZAAR PO SCH (10:18)
[2019-01-27] MEDS: CLARITIN PO SCH (10:18)
[2019-01-27] MEDS: LASIX PO SCH (10:18)
[2019-01-27] MEDS: HALFPRIN EC PO SCH (10:18)
[2019-01-27] MEDS: HumaLOG SUB-Q SCH ×4 (10:18→22:03)
[2019-01-27] MEDS: PROSCAR PO SCH (10:18)
[2019-01-27] MEDS: ALDACTONE PO SCH (10:18)
[2019-01-27] MEDS: SOLU-Medrol IV SCH ×2 (10:19→22:04)
[2019-01-27] MEDS: LEVAQUIN 750MG/150ML 750 MG/150 ML BAG IV SCH (10:19)
[2019-01-27] MEDS: SODIUM CHLORIDE FLUSH SYRINGE 10 ML IV SCH ×2 (10:19→22:03)
--- NOTE | 2019-01-27 13:11 | Progress Note ---
Assessment and Plan Assessment and plan: 58-year-old man who presents with shortness of breath 1 week Chronic systolic CHF with exacerbation IV Lasix 40 mg every 12 Daily weights Daily intake and output Echocardiogram showed 25-30% Cardiology consulted and with lengthy discussion with patient regarding the risk and benefits of BiV cardiac defibrillator implantation. Patient agrees to proceed and is scheduled for January 29. Chest pain Troponins were negative stress test will be done today COPD with acute exacerbation Nebulizer treatments with albuterol and ipratropium, taper IV Solu-Medrol. On IV Levaquin BiPAP if necessary BPH (benign prostatic hyperplasia) Continue tamsulosin and Proscar Hypertension Continue antihypertensives Hyperlipidemia Continue statins Coronary artery disease Continue Isordil and aspirin Hyperkalemia Stop KCL supplementation DVT prophylaxis On Lovenox Disposition. patient reportedly received lifevest History Interval history: Review of systems Constitutional: No fevers, no malaise, no joint pains CVS: No chest pain, no orthopnea, no dyspnea on exertion, no pedal edema GI: No abdominal pain, no diarrhea, no vomiting, no constipation Respiratory: no wheezing, no coughing Hospitalist Physical - Physical exam Narrative exam: General.: Appears well, no distress, nontoxic HEENT: Moist mucous membranes, extraocular muscles intact, no lymphadenopathy Neck: supple Cardiac: S1-S2 heard Lungs: clear to auscultation bilaterally Abdomen: soft , nontender, nondistended, bowel sounds positive Extremities: no edema clubbing or cyanosis Skin: no rash or lesions Neurologic: no gross focal deficits Psych: calm, and cooperative - Constitutional Vitals: Temp Pulse Resp BP Pulse Ox 98.3 F 79 18 140/86 100 01/27/19 08:52 01/27/19 10:18 01/27/19 10:00 01/27/19 10:18 01/27/19 10:00 General appearance: Present: no acute distress Results - Labs CBC & Chem 7: 01/23/19 05:47 01/26/19 04:44 Labs: Laboratory Last Values WBC 14.1 K/mm3 (4.5-11.0) H 01/23/19 05:47 RBC 3.72 M/mm3 (3.65-5.03) 01/23/19 05:47 Hgb 11.8 gm/dl (11.8-15.2) 01/23/19 05:47 Hct 35.3 % (35.5-45.6) L 01/23/19 05:47 MCV 95 fl (84-94) H 01/23/19 05:47 MCH 32 pg (28-32) 01/23/19 05:47 MCHC 33 % (32-34) 01/23/19 05:47 RDW 14.2 % (13.2-15.2) 01/23/19 05:47 Plt Count 283 K/mm3 (140-440) 01/23/19 05:47 Lymph % (Auto) 4.1 % (13.4-35.0) L 01/22/19 03:40 [place] % (Auto) 10.1 % (0.0-7.3) H 01/22/19 03:40 Eos % (Auto) 0.2 % (0.0-4.3) 01/22/19 03:40 Baso % (Auto) 0.1 % (0.0-1.8) 01/22/19 03:40 Lymph # 0.6 K/mm3 (1.2-5.4) L 01/22/19 03:40 [place] # 1.5 K/mm3 (0.0-0.8) H 01/22/19 03:40 Eos # 0.0 K/mm3 (0.0-0.4) 01/22/19 03:40 Baso # 0.0 K/mm3 (0.0-0.1) 01/22/19 03:40 Add Manual Diff Complete 01/23/19 05:47 Total Counted 100 01/23/19 05:47 Seg Neutrophils % 85.5 % (40.0-70.0) H 01/22/19 03:40 Seg Neuts % (Manual) 95.0 % (40.0-70.0) H 01/23/19 05:47 0 % 01/23/19 05:47 4.0 % (13.4-35.0) L 01/23/19 05:47 Reactive Lymphs % (Man) 0 % 01/23/19 05:47 1.0 % (0.0-7.3) 01/23/19 05:47 0 % (0.0-4.3) 01/23/19 05:47 0 % (0.0-1.8) 01/23/19 05:47 0 % 01/23/19 05:47 0 % 01/23/19 05:47 0 % 01/23/19 05:47 0 % 01/23/19 05:47 Nucleated RBC % Not Reportable 01/23/19 05:47 Seg Neutrophils # 12.8 K/mm3 (1.8-7.7) H 01/22/19 03:40 Seg Neutrophils # Man 13.4 K/mm3 (1.8-7.7) H 01/23/19 05:47 Band Neutrophils # 0.0 K/mm3 01/23/19 05:47 0.6 K/mm3 (1.2-5.4) L 01/23/19 05:47 Abs React Lymphs (Man) 0.0 K/mm3 01/23/19 05:47 0.1 K/mm3 (0.0-0.8) 01/23/19 05:47 0.0 K/mm3 (0.0-0.4) 01/23/19 05:47 0.0 K/mm3 (0.0-0.1) 01/23/19 05:47 0.0 K/mm3 01/23/19 05:47 0.0 K/mm3 01/23/19 05:47 0.0 K/mm3 01/23/19 05:47 Blast Cells # 0.0 K/mm3 01/23/19 05:47 WBC Morphology Not Reportable 01/23/19 05:47 Hypersegmented Neuts Not Reportable 01/23/19 05:47 Hyposegmented Neuts Not Reportable 01/23/19 05:47 Hypogranular Neuts Not Reportable 01/23/19 05:47 Not Reportable 01/23/19 05:47 Not Reportable 01/23/19 05:47 Not Reportable 01/23/19 05:47 Not Reportable 01/23/19 05:47 Not Reportable 01/23/19 05:47 Not Reportable 01/23/19 05:47 Consistent w auto 01/23/19 05:47 Not Reportable 01/23/19 05:47 Plt Clumps, EDTA Not Reportable 01/23/19 05:47 Rare 01/23/19 05:47 Not Reportable 01/23/19 05:47 Not Reportable 01/23/19 05:47 Plt Morphology Comment Not Reportable 01/23/19 05:47 RBC Morphology Normal 01/23/19 05:47 Dimorphic RBCs Not Reportable 01/23/19 05:47 Not Reportable 01/23/19 05:47 Not Reportable 01/23/19 05:47 Not Reportable 01/23/19 05:47 Not Reportable 01/23/19 05:47 Not Reportable 01/23/19 05:47 Not Reportable 01/23/19 05:47 Not Reportable 01/23/19 05:47 Not Reportable 01/23/19 05:47 Not Reportable 01/23/19 05:47 Not Reportable 01/23/19 05:47 Not Reportable 01/23/19 05:47 Not Reportable 01/23/19 05:47 Not Reportable 01/23/19 05:47 Not Reportable 01/23/19 05:47 Not Reportable 01/23/19 05:47 Not Reportable 01/23/19 05:47 Not Reportable 01/23/19 05:47 Not Reportable 01/23/19 05:47 Not Reportable 01/23/19 05:47 Acanthocytes (Spur) Not Reportable 01/23/19 05:47 Rouleaux Not Reportable 01/23/19 05:47 Not Reportable 01/23/19 05:47 Not Reportable 01/23/19 05:47 Not Reportable 01/23/19 05:47 Not Reportable 01/23/19 05:47 Hem Pathologist Commnt No 01/23/19 05:47 PT 14.3 Sec. (12.2-14.9) 01/25/19 00:45 INR 1.14 (0.87-1.13) H 01/25/19 00:45 341.68 ng/mlDDU (0-234) H 01/22/19 07:08 Sodium 136 mmol/L (137-145) L 01/26/19 04:44 Potassium 5.2 mmol/L (3.6-5.0) H 01/26/19 04:44 Chloride 99.6 mmol/L (98-107) 01/26/19 04:44 Carbon Dioxide 28 mmol/L (22-30) 01/26/19 04:44 14 mmol/L 01/26/19 04:44 BUN 24 mg/dL (9-20) H 01/26/19 04:44 1.3 mg/dL (0.8-1.5) 01/26/19 04:44 Estimated GFR > 60 ml/min 01/26/19 04:44 18 % 01/26/19 04:44 Glucose 356 mg/dL (75-100) H 01/26/19 04:44 POC Glucose 132 (70-105) H 01/27/19 12:02 5.1 % (4-6) 01/22/19 21:50 Calcium 9.3 mg/dL (8.4-10.2) 01/26/19 04:44 Magnesium 2.00 mg/dL (1.7-2.3) 01/25/19 14:57 0.30 mg/dL (0.1-1.2) 01/23/19 05:47 AST 13 units/L (5-40) 01/23/19 05:47 ALT 6 units/L (7-56) L 01/23/19 05:47 86 units/L (35-129) 01/23/19 05:47 < 0.010 ng/mL (0.00-0.029) 01/22/19 08:30 NT-Pro-B Natriuret Pep 3501 pg/mL (0-900) H 01/22/19 07:08 7.2 g/dL (6.3-8.2) 01/23/19 05:47 3.8 g/dL (3.9-5) L 01/23/19 05:47 1.1 % 01/23/19 05:47 Active Medications - Current Medications Current Medications: Generic Name Dose Route Start Last Admin Trade Name Freq PRN Reason Stop Dose Admin Acetaminophen 650 mg 01/22/19 21:02 Tylenol PO Q4H PRN Pain MILD(1-3)/Fever >100.5/HUITRON Albuterol 2.5 mg 01/24/19 14:15 01/27/19 08:39 Proventil IH 2.5 mg Q6HRT RUFUS Administration Arformoterol Tartrate 15 mcg 01/22/19 22:00 01/27/19 08:39 Brovana Nebu IH 15 mcg Q12HRT RUFUS Administration Aspirin 81 mg 01/22/19 21:00 01/27/19 10:18 Halfprin Ec PO 81 mg QDAY RUFUS Administration Atorvastatin Calcium 20 mg 01/22/19 20:30 01/27/19 10:18 Lipitor PO 20 mg DAILY RUFUS Administration Budesonide 0.5 mg 01/24/19 14:09 01/27/19 08:39 Pulmicort IH 0.5 mg Q12HRT RUFUS Administration Carvedilol 12.5 mg 01/22/19 22:00 01/27/19 10:18 Coreg PO 12.5 mg BID RUFUS Administration Cyanocobalamin 2,000 mcg 01/22/19 21:00 01/27/19 10:17 Vitamin B-12 PO 2,000 mcg DAILY RUFUS Administration Dextrose 50 ml 01/26/19 17:38 D50w (25gm) Syringe IV PRN PRN Hypoglycemia Enoxaparin Sodium 40 mg 01/22/19 22:00 01/26/19 21:07 Lovenox SUB-Q 40 mg QDAY@2200 RUFUS Administration Famotidine 20 mg 01/22/19 22:00 01/27/19 10:17 Pepcid IV 20 mg BID RUFUS Administration Finasteride 5 mg 01/22/19 21:00 01/27/19 10:18 Proscar PO 5 mg QDAY RUFUS Administration Fluticasone Propionate 100 mcg 01/22/19 21:00 01/27/19 10:00 Flonase NS 100 mcg QDAY RUFUS Administration Furosemide 40 mg 01/26/19 10:00 01/27/19 10:18 Lasix PO 40 mg QDAY RUFUS Administration Hydromorphone HCl 0.5 mg 01/22/19 21:02 Dilaudid IV Q3H PRN Pain , Severe (7-10) Levofloxacin/Dextrose 750 mg in 150 mls @ 100 mls/hr 01/22/19 22:00 01/27/19 10:19 Levaquin 750mg/150ml IV 100 mls/hr Q24HR RUFUS Administration Protocol Sodium Chloride 500 mls @ 50 mls/hr 01/25/19 08:00 01/25/19 07:48 Nacl 0.9% 500 Ml IV 50 mls/hr DIRECT RUFUS Administration Insulin Human Lispro 0 unit 01/26/19 22:00 01/27/19 12:06 Humalog SUB-Q Not Given ACHS RUFUS Protocol Loratadine 10 mg 01/22/19 21:00 01/27/19 10:18 Claritin PO 10 mg DAILY RUFUS Administration Losartan Potassium 25 mg 01/25/19 11:00 01/27/19 10:18 Cozaar PO 25 mg QDAY RUFUS Administration Methylprednisolone Sodium Succinate 20 mg 01/27/19 10:00 01/27/19 10:19 Solu-Medrol IV 20 mg Q12H RUFUS Administration Montelukast Sodium 10 mg 01/23/19 18:00 01/26/19 18:24 Singulair PO Not Given QPM RUFUS Ondansetron HCl 4 mg 01/22/19 21:02 Zofran IV Q8H PRN Nausea And Vomiting Oxycodone/Acetaminophen 1 tab 01/22/19 21:02 Percocet 5/325 PO Q6H PRN Pain, Moderate (4-6) Sodium Chloride 10 ml 01/22/19 22:00 01/27/19 10:19 Sodium Chloride Flush Syringe 10 Ml IV 10 ml BID RUFUS Administration Sodium Chloride 10 ml 01/22/19 21:02 Sodium Chloride Flush Syringe 10 Ml IV PRN PRN LINE FLUSH Spironolactone 25 mg 01/22/19 21:00 01/27/19 10:18 Aldactone PO 25 mg QDAY RUFUS Administration Tamsulosin HCl 0.4 mg 01/22/19 22:00 01/26/19 21:07 Flomax PO 0.4 mg HS RUFUS Administration
--- NOTE | 2019-01-27 13:14 | Progress Note ---
Assessment and Plan Cardiac status is stable. Awaiting ICD placement on 01/29/2019. Addressed numerous concerns patient has about upcoming procedure. He still expresses willingness to continue wearing LifeVest until Monday. The patient has been seen in conjunction with Dr. Parker, who agrees with assessment and plan. - Patient Problems (1) Acute heart failure Current Visit: Yes Status: Acute (2) Chest pain Current Visit: Yes Status: Resolved Qualifiers: Chest pain type: unspecified Qualified Code(s): R07.9 - Chest pain, unspecified (3) NSVT (nonsustained ventricular tachycardia) Current Visit: Yes Status: Acute (4) Coronary artery disease Current Visit: Yes Status: Chronic Qualifiers: Coronary Disease-Associated Artery/Lesion type: [place] artery [place] vs. transplanted heart: [place] heart (5) Hypertension Current Visit: Yes Status: Chronic Qualifiers: Hypertension type: essential hypertension Qualified Code(s): I10 - Essential (primary) hypertension (6) Cardiomyopathy Current Visit: Yes Status: Chronic (7) COPD with acute exacerbation Current Visit: Yes Status: Acute (8) CKD (chronic kidney disease) Current Visit: Yes Status: Chronic (9) Hyperlipidemia Current Visit: Yes Status: Chronic Qualifiers: Hyperlipidemia type: mixed hyperlipidemia Qualified Code(s): E78.2 - Mixed hyperlipidemia Subjective Date of service: 01/27/19 Principal diagnosis: HF Interval history: Patient sitting up in bed with LifeVest and cardiac monitor removed. Patient states he just showered. He reports his SOB and edema are mildly improved. No telemetry events noted overnight. Stress test on 01/24/19: Severe LV dysfunction with evidence of prior inferoapical wall myocardial necrosis. Significant degree of ischemia not seen. Objective Last Vital Signs Temp 98.3 F 01/27/19 08:52 Pulse 79 01/27/19 10:18 Resp 18 01/27/19 10:00 BP 140/86 01/27/19 10:18 Pulse Ox 100 01/27/19 10:00 - Physical Examination General: No Apparent Distress HEENT: Positive: PERRL, Normocephaly, Mucus Membranes Moist Neck: Positive: neck supple, trachea midline Cardiac: Positive: Reg Rate and Rhythm Lungs: Positive: Normal Exam Neuro: Positive: Grossly Intact Abdomen: Positive: Unremarkable. Negative: Tender /Rectal: Other (Deferred) Skin: Positive: Clear. Negative: Rash Musculoskeletal: No Pain Extremities: Present: normal, +1 Edema. Absent: edema - Imaging and Cardiology EKG: report reviewed, image reviewed Pharmacologic stress test: report reviewed (01/24/2019: Severe LV dysfunction with evidence of prior inferoapical wall myocardial necrosis. Significant degree of ischemia not seen.) Echo: report reviewed ( EF 25-30%, LV mod dilated, pseudonormalization, LA mildly dilated, RA mod dilated, moderately severe MR, mildly dilated RV, mild TR. ) Cardiac cath: report reviewed (LHC at [facility] on 01/03/2019 which showed mild CAD (normal left main, prox LAD 20%, first obtuse marginal 10%, second obtuse marginal 10%, prox RCA 50%). ) - EKG Sinus rhythms and dysrhythmias: sinus rhythm AV and intraventricular conduction: intraventricular conducti
[2019-01-27] MEDS: SINGULAIR PO SCH (17:39)
[2019-01-27] MEDS: FLOMAX PO SCH (22:02)
[2019-01-27] MEDS: LOVENOX SUB-Q SCH (22:03)
[2019-01-28] MEDS: PROVENTIL IH SCH ×4 (03:01→20:11)
[2019-01-28] MEDS: BROVANA NEBU IH SCH ×2 (07:30→20:07)
[2019-01-28] MEDS: PULMICORT IH SCH ×2 (07:30→20:08)
[2019-01-28] MEDS: PEPCID IV SCH (10:26)
[2019-01-28] MEDS: HALFPRIN EC PO SCH (10:26)
[2019-01-28] MEDS: PROSCAR PO SCH (10:27)
[2019-01-28] MEDS: VITAMIN B-12 PO SCH (10:27)
[2019-01-28] MEDS: COREG PO SCH ×2 (10:28→21:47)
[2019-01-28] MEDS: ALDACTONE PO SCH (10:28)
[2019-01-28] MEDS: HumaLOG SUB-Q SCH ×4 (10:31→21:47)
[2019-01-28] MEDS: SODIUM CHLORIDE FLUSH SYRINGE 10 ML IV SCH ×2 (10:35→21:48)
--- NOTE | 2019-01-28 10:39 | Progress Note ---
Assessment and Plan Cont present cardiac management. Pt for AICD implantation tomorrow. NPO after MN. The patient has been seen in conjunction with Dr. Parker who agrees with the assessment and plan of care. 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 transplanted heart: [place] heart (6) Hyperlipidemia Current Visit: Yes Status: Chronic Qualifiers: Hyperlipidemia type: mixed hyperlipidemia Qualified Code(s): E78.2 - Mixed hyperlipidemia (7) Hypertension Current Visit: Yes Status: Chronic Qualifiers: Hypertension type: essential hypertension Qualified Code(s): I10 - Essential (primary) hypertension (8) CKD (chronic kidney disease) Current Visit: Yes Status: Chronic (9) NSVT (nonsustained ventricular tachycardia) Current Visit: Yes Status: Acute Subjective Date of service: 01/28/19 Principal diagnosis: HF Interval history: pt resting at bedside, no current cardiac complaints. LifeVest in place. Objective Last Vital Signs Temp 97.6 F 01/28/19 07:28 Pulse 68 01/28/19 10:28 Resp 18 01/28/19 07:50 BP 124/72 01/28/19 10:28 Pulse Ox 97 01/28/19 07:28 - Physical Examination General: No Apparent Distress HEENT: Positive: PERRL, Normocephaly, Mucus Membranes Moist Neck: Positive: neck supple, trachea midline Cardiac: Positive: Reg Rate and Rhythm, S1/S2 Lungs: Positive: Decreased Breath Sounds Neuro: Positive: Grossly Intact Abdomen: Positive: Unremarkable. Negative: Tender /Rectal: Other (Deferred) Skin: Positive: Clear. Negative: Rash Musculoskeletal: No Pain Extremities: Present: normal, +1 Edema. Absent: edema - Imaging and Cardiology EKG: report reviewed, image reviewed Echo: report reviewed ( EF 25-30%, LV mod dilated, pseudonormalization, LA mildly dilated, RA mod dilated, moderately severe MR, mildly dilated RV, mild TR. ) Cardiac cath: report reviewed (LHC at [facility] on 01/03/2019 which showed mild CAD (normal left main, prox LAD 20%, first obtuse marginal 10%, second obtuse marginal 10%, prox RCA 50%). ) - Telemetry EKG Rhythm: Sinus Rhythm - EKG Sinus rhythms and dysrhythmias: sinus rhythm AV and intraventricular conduction: intraventricular conducti
[2019-01-28] MEDS: SOLU-Medrol IV SCH (11:33)
[2019-01-28] MEDS: COZAAR PO SCH (11:35)
[2019-01-28] MEDS: LASIX PO SCH (11:37)
[2019-01-28] MEDS: CLARITIN PO SCH (11:37)
[2019-01-28] MEDS: LEVAQUIN 750MG/150ML 750 MG/150 ML BAG IV SCH (11:38)
[2019-01-28] MEDS: FLONASE NS SCH (12:39)
--- NOTE | 2019-01-28 17:13 | Progress Note ---
Assessment and Plan Assessment and plan: 58-year-old man who presents with shortness of breath 1 week Chronic systolic CHF with exacerbation cont Lasix Echocardiogram showed 25-30% Cardiology consulted and with lengthy discussion with patient regarding the risk and benefits of BiV cardiac defibrillator implantation. Patient agrees to proceed and is scheduled for January 29. Chest pain Troponins were negative, stress test neg COPD with acute exacerbation Nebulizer treatments with albuterol and ipratropium, taper IV Solu-Medrol. On IV Levaquin BiPAP if necessary BPH (benign prostatic hyperplasia) Continue tamsulosin and Proscar Hypertension Continue antihypertensives Hyperlipidemia Continue statins Coronary artery disease Continue Isordil and aspirin Hyperkalemia Stop KCL supplementation DVT prophylaxis On Lovenox Disposition. patient reportedly received lifevest History Interval history: Review of systems Constitutional: No fevers, no malaise, no joint pains CVS: No chest pain, no orthopnea, no dyspnea on exertion, no pedal edema GI: No abdominal pain, no diarrhea, no vomiting, no constipation Respiratory: no wheezing, no coughing Hospitalist Physical - Physical exam Narrative exam: General.: Appears well, no distress, nontoxic HEENT: Moist mucous membranes, extraocular muscles intact, no lymphadenopathy Neck: supple Cardiac: S1-S2 heard Lungs: decreased air entry Abdomen: soft , nontender, nondistended, bowel sounds positive Extremities: no edema clubbing or cyanosis Skin: no rash or lesions Neurologic: no gross focal deficits Psych: calm, and cooperative - Constitutional Vitals: Temp Pulse Resp BP Pulse Ox 97.5 F L 68 20 124/72 99 01/28/19 11:22 01/28/19 11:35 01/28/19 11:22 01/28/19 11:35 01/28/19 11:22 General appearance: Present: no acute distress Results - Labs CBC & Chem 7: 01/23/19 05:47 01/26/19 04:44 Labs: Laboratory Last Values WBC 14.1 K/mm3 (4.5-11.0) H 01/23/19 05:47 RBC 3.72 M/mm3 (3.65-5.03) 01/23/19 05:47 Hgb 11.8 gm/dl (11.8-15.2) 01/23/19 05:47 Hct 35.3 % (35.5-45.6) L 01/23/19 05:47 MCV 95 fl (84-94) H 01/23/19 05:47 MCH 32 pg (28-32) 01/23/19 05:47 MCHC 33 % (32-34) 01/23/19 05:47 RDW 14.2 % (13.2-15.2) 01/23/19 05:47 Plt Count 283 K/mm3 (140-440) 01/23/19 05:47 Lymph % (Auto) 4.1 % (13.4-35.0) L 01/22/19 03:40 [place] % (Auto) 10.1 % (0.0-7.3) H 01/22/19 03:40 Eos % (Auto) 0.2 % (0.0-4.3) 01/22/19 03:40 Baso % (Auto) 0.1 % (0.0-1.8) 01/22/19 03:40 Lymph # 0.6 K/mm3 (1.2-5.4) L 01/22/19 03:40 [place] # 1.5 K/mm3 (0.0-0.8) H 01/22/19 03:40 Eos # 0.0 K/mm3 (0.0-0.4) 01/22/19 03:40 Baso # 0.0 K/mm3 (0.0-0.1) 01/22/19 03:40 Add Manual Diff Complete 01/23/19 05:47 Total Counted 100 01/23/19 05:47 Seg Neutrophils % 85.5 % (40.0-70.0) H 01/22/19 03:40 Seg Neuts % (Manual) 95.0 % (40.0-70.0) H 01/23/19 05:47 0 % 01/23/19 05:47 4.0 % (13.4-35.0) L 01/23/19 05:47 Reactive Lymphs % (Man) 0 % 01/23/19 05:47 1.0 % (0.0-7.3) 01/23/19 05:47 0 % (0.0-4.3) 01/23/19 05:47 0 % (0.0-1.8) 01/23/19 05:47 0 % 01/23/19 05:47 0 % 01/23/19 05:47 0 % 01/23/19 05:47 0 % 01/23/19 05:47 Nucleated RBC % Not Reportable 01/23/19 05:47 Seg Neutrophils # 12.8 K/mm3 (1.8-7.7) H 01/22/19 03:40 Seg Neutrophils # Man 13.4 K/mm3 (1.8-7.7) H 01/23/19 05:47 Band Neutrophils # 0.0 K/mm3 01/23/19 05:47 0.6 K/mm3 (1.2-5.4) L 01/23/19 05:47 Abs React Lymphs (Man) 0.0 K/mm3 01/23/19 05:47 0.1 K/mm3 (0.0-0.8) 01/23/19 05:47 0.0 K/mm3 (0.0-0.4) 01/23/19 05:47 0.0 K/mm3 (0.0-0.1) 01/23/19 05:47 0.0 K/mm3 01/23/19 05:47 0.0 K/mm3 01/23/19 05:47 0.0 K/mm3 01/23/19 05:47 Blast Cells # 0.0 K/mm3 01/23/19 05:47 WBC Morphology Not Reportable 01/23/19 05:47 Hypersegmented Neuts Not Reportable 01/23/19 05:47 Hyposegmented Neuts Not Reportable 01/23/19 05:47 Hypogranular Neuts Not Reportable 01/23/19 05:47 Not Reportable 01/23/19 05:47 Not Reportable 01/23/19 05:47 Not Reportable 01/23/19 05:47 Not Reportable 01/23/19 05:47 Not Reportable 01/23/19 05:47 Not Reportable 01/23/19 05:47 Consistent w auto 01/23/19 05:47 Not Reportable 01/23/19 05:47 Plt Clumps, EDTA Not Reportable 01/23/19 05:47 Rare 01/23/19 05:47 Not Reportable 01/23/19 05:47 Not Reportable 01/23/19 05:47 Plt Morphology Comment Not Reportable 01/23/19 05:47 RBC Morphology Normal 01/23/19 05:47 Dimorphic RBCs Not Reportable 01/23/19 05:47 Not Reportable 01/23/19 05:47 Not Reportable 01/23/19 05:47 Not Reportable 01/23/19 05:47 Not Reportable 01/23/19 05:47 Not Reportable 01/23/19 05:47 Not Reportable 01/23/19 05:47 Not Reportable 01/23/19 05:47 Not Reportable 01/23/19 05:47 Not Reportable 01/23/19 05:47 Not Reportable 01/23/19 05:47 Not Reportable 01/23/19 05:47 Not Reportable 01/23/19 05:47 Not Reportable 01/23/19 05:47 Not Reportable 01/23/19 05:47 Not Reportable 01/23/19 05:47 Not Reportable 01/23/19 05:47 Not Reportable 01/23/19 05:47 Not Reportable 01/23/19 05:47 Not Reportable 01/23/19 05:47 Acanthocytes (Spur) Not Reportable 01/23/19 05:47 Rouleaux Not Reportable 01/23/19 05:47 Not Reportable 01/23/19 05:47 Not Reportable 01/23/19 05:47 Not Reportable 01/23/19 05:47 Not Reportable 01/23/19 05:47 Hem Pathologist Commnt No 01/23/19 05:47 PT 14.3 Sec. (12.2-14.9) 01/25/19 00:45 INR 1.14 (0.87-1.13) H 01/25/19 00:45 341.68 ng/mlDDU (0-234) H 01/22/19 07:08 Sodium 136 mmol/L (137-145) L 01/26/19 04:44 Potassium 5.2 mmol/L (3.6-5.0) H 01/26/19 04:44 Chloride 99.6 mmol/L (98-107) 01/26/19 04:44 Carbon Dioxide 28 mmol/L (22-30) 01/26/19 04:44 14 mmol/L 01/26/19 04:44 BUN 24 mg/dL (9-20) H 01/26/19 04:44 1.3 mg/dL (0.8-1.5) 01/26/19 04:44 Estimated GFR > 60 ml/min 01/26/19 04:44 18 % 01/26/19 04:44 Glucose 356 mg/dL (75-100) H 01/26/19 04:44 POC Glucose 283 (70-105) H 01/28/19 17:06 5.1 % (4-6) 01/22/19 21:50 Calcium 9.3 mg/dL (8.4-10.2) 01/26/19 04:44 Magnesium 2.00 mg/dL (1.7-2.3) 01/25/19 14:57 0.30 mg/dL (0.1-1.2) 01/23/19 05:47 AST 13 units/L (5-40) 01/23/19 05:47 ALT 6 units/L (7-56) L 01/23/19 05:47 86 units/L (35-129) 01/23/19 05:47 < 0.010 ng/mL (0.00-0.029) 01/22/19 08:30 NT-Pro-B Natriuret Pep 3501 pg/mL (0-900) H 01/22/19 07:08 7.2 g/dL (6.3-8.2) 01/23/19 05:47 3.8 g/dL (3.9-5) L 01/23/19 05:47 1.1 % 01/23/19 05:47 Active Medications - Current Medications Current Medications: Generic Name Dose Route Start Last Admin Trade Name Freq PRN Reason Stop Dose Admin Acetaminophen 650 mg 01/22/19 21:02 Tylenol PO Q4H PRN Pain MILD(1-3)/Fever >100.5/HUITRON Albuterol 2.5 mg 01/24/19 14:15 01/28/19 14:09 Proventil IH Not Given Q6HRT RUFUS Arformoterol Tartrate 15 mcg 01/22/19 22:00 01/28/19 07:30 Brovana Nebu IH 15 mcg Q12HRT RUFUS Administration Aspirin 81 mg 01/22/19 21:00 01/28/19 10:26 Halfprin Ec PO 81 mg QDAY RUFUS Administration Atorvastatin Calcium 20 mg 01/22/19 20:30 01/28/19 10:27 Lipitor PO 20 mg DAILY RUFUS Administration Budesonide 0.5 mg 01/24/19 14:09 01/28/19 07:30 Pulmicort IH 0.5 mg Q12HRT RUFUS Administration Carvedilol 12.5 mg 01/22/19 22:00 01/28/19 10:28 Coreg PO 12.5 mg BID RUFUS Administration Cyanocobalamin 2,000 mcg 01/22/19 21:00 01/28/19 10:27 Vitamin B-12 PO 2,000 mcg DAILY RUFUS Administration Dextrose 50 ml 01/26/19 17:38 D50w (25gm) Syringe IV PRN PRN Hypoglycemia Enoxaparin Sodium 40 mg 01/22/19 22:00 01/27/19 22:03 Lovenox SUB-Q 40 mg QDAY@2200 RUFUS Administration Famotidine 20 mg 01/28/19 22:00 Pepcid PO BID URFUS Finasteride 5 mg 01/22/19 21:00 01/28/19 10:27 Proscar PO 5 mg QDAY RUFUS Administration Fluticasone Propionate 100 mcg 01/22/19 21:00 01/28/19 12:39 Flonase NS 100 mcg QDAY RUFUS Administration Furosemide 40 mg 01/26/19 10:00 01/28/19 11:37 Lasix PO 40 mg QDAY RUFUS Administration Hydromorphone HCl 0.5 mg 01/22/19 21:02 Dilaudid IV Q3H PRN Pain , Severe (7-10) Levofloxacin/Dextrose 750 mg in 150 mls @ 100 mls/hr 01/22/19 22:00 01/28/19 11:38 Levaquin 750mg/150ml IV 100 mls/hr Q24HR RUFUS Administration Protocol Sodium Chloride 500 mls @ 50 mls/hr 01/25/19 08:00 01/25/19 07:48 Nacl 0.9% 500 Ml IV 50 mls/hr DIRECT RUFUS Administration Insulin Human Lispro 0 unit 01/26/19 22:00 01/28/19 12:37 Humalog SUB-Q 4 unit ACHS RUFUS Administration Protocol Loratadine 10 mg 01/22/19 21:00 01/28/19 11:37 Claritin PO 10 mg DAILY RUFUS Administration Losartan Potassium 25 mg 01/25/19 11:00 01/28/19 11:35 Cozaar PO 25 mg QDAY RUFUS Administration Methylprednisolone Sodium Succinate 20 mg 01/29/19 10:00 Solu-Medrol IV Q24HR RUFUS Montelukast Sodium 10 mg 01/23/19 18:00 01/27/19 17:39 Singulair PO 10 mg QPM RUFUS Administration Ondansetron HCl 4 mg 01/22/19 21:02 Zofran IV Q8H PRN Nausea And Vomiting Oxycodone/Acetaminophen 1 tab 01/22/19 21:02 Percocet 5/325 PO Q6H PRN Pain, Moderate (4-6) Sodium Chloride 10 ml 01/22/19 22:00 01/28/19 10:35 Sodium Chloride Flush Syringe 10 Ml IV 10 ml BID RUFUS Administration Sodium Chloride 10 ml 01/22/19 21:02 Sodium Chloride Flush Syringe 10 Ml IV PRN PRN LINE FLUSH Spironolactone 25 mg 01/22/19 21:00 01/28/19 10:28 Aldactone PO 25 mg QDAY RUFUS Administration Tamsulosin HCl 0.4 mg 01/22/19 22:00 01/27/19 22:02 Flomax PO 0.4 mg HS RUFUS Administration
[2019-01-28] MEDS: SINGULAIR PO SCH (18:41)
[2019-01-28] MEDS: PEPCID PO SCH (21:47)
[2019-01-28] MEDS: FLOMAX PO SCH (21:47)
[2019-01-28] MEDS: LOVENOX SUB-Q SCH (21:47)
[2019-01-29] MEDS: PROVENTIL IH SCH ×4 (01:56→21:20)
[2019-01-29 04:37] LABS: Hematocrit 40.8 % (35.5-45.6); Hemoglobin 12.9 gm/dl (11.8-15.2); Mean Corpuscular HGB Conc 32 % (32-34); Mean Corpuscular Volume 94 fl (84-94); Platelet Count 313 K/mm3 (140-440); Red Blood Count 4.36 M/mm3 (3.65-5.03)
[2019-01-29 04:49] LABS: INR 1.09 (0.87-1.13)
[2019-01-29 05:01] LABS: BUN/Creatinine Ratio 27; Blood Urea Nitrogen 27 mg/dL (9-20); Hemolysis Index 25
[2019-01-29 05:45] LABS: Total Cells Counted 100
[2019-01-29 05:46] LABS: Basophils % (Manual) 0 % (0.0-1.8); Eosinophils % (Manual) 0 % (0.0-4.3); Large Platelets Rare; Platelet Estimate Consistent w Auto; RBC Morphology Normal
[2019-01-29] MEDS: BROVANA NEBU IH SCH ×2 (08:04→21:20)
[2019-01-29] MEDS: PULMICORT IH SCH ×2 (08:04→21:20)
--- NOTE | 2019-01-29 10:58 | Progress Note ---
Assessment and Plan Pt for AICD implantation today. The patient has been seen in conjunction with Dr. Parker who agrees with the assessment and plan of care. - Patient Problems (1) Acute HFrEF (heart failure with reduced ejection fraction) Current Visit: Yes Status: Acute (2) Nonischemic dilated cardiomyopathy Current Visit: Yes Status: Chronic (3) COPD with acute exacerbation Current Visit: Yes Status: Acute (4) Chest pain Current Visit: Yes Status: Resolved Qualifiers: Chest pain type: unspecified Qualified Code(s): R07.9 - Chest pain, unspecified (5) Coronary artery disease Current Visit: Yes Status: Chronic Qualifiers: Coronary Disease-Associated Artery/Lesion type: [place] artery [place] vs. transplanted heart: [place] heart (6) Hyperlipidemia Current Visit: Yes Status: Chronic Qualifiers: Hyperlipidemia type: mixed hyperlipidemia Qualified Code(s): E78.2 - Mixed hyperlipidemia (7) Hypertension Current Visit: Yes Status: Chronic Qualifiers: Hypertension type: essential hypertension Qualified Code(s): I10 - Essenti al (primary) hypertension (8) CKD (chronic kidney disease) Current Visit: Yes Status: Chronic (9) NSVT (nonsustained ventricular tachycardia) Current Visit: Yes Status: Acute Subjective Date of service: 01/29/19 Principal diagnosis: HF Interval history: pt resting at bedside, no current cardiac complaints. LifeVest in place. for AICD implantation today. Objective Last Vital Signs Temp 97.7 F 01/29/19 08:26 Pulse 58 L 01/29/19 08:25 Resp 18 01/29/19 08:26 BP 134/87 01/29/19 08:26 Pulse Ox 98 01/29/19 04:00 - Physical Examination General: No Apparent Distress HEENT: Positive: PERRL, Normocephaly, Mucus Membranes Moist Neck: Positive: neck supple, trachea midline Cardiac: Positive: Reg Rate and Rhythm, S1/S2 Lungs: Positive: Decreased Breath Sounds Neuro: Positive: Grossly Intact Abdomen: Positive: Unremarkable. Negative: Tender /Rectal: Other (Deferred) Skin: Positive: Clear. Negative: Rash Musculoskeletal: No Pain Extremities: Present: normal, +1 Edema. Absent: edema - Labs and Meds Coagulation 01/29/19 Range/Units 04:18 PT 13.8 (12.2-14.9) Sec. INR 1.09 (0.87-1.13) CBC 01/29/19 Range/Units 04:18 WBC 21.1 H (4.5-11.0) K/mm3 RBC 4.36 (3.65-5.03) M/mm3 Hgb 12.9 (11.8-15.2) gm/dl Hct 40.8 (35.5-45.6) % Plt Count 313 (140-440) K/mm3 Comprehensive Metabolic Panel 01/29/19 Range/Units 04:18 Sodium 135 L (137-145) mmol/L Potassium 4.3 (3.6-5.0) mmol/L Chloride 98.8 (98-107) mmol/L Carbon Dioxide 26 (22-30) mmol/L BUN 27 H (9-20) mg/dL Creatinine 1.0 (0.8-1.5) mg/dL Glucose 209 H (75-100) mg/dL Calcium 9.0 (8.4-10.2) mg/dL - Imaging and Cardiology EKG: report reviewed, image reviewed Echo: report reviewed ( EF 25-30%, LV mod dilated, pseudonormalization, LA mildly dilated, RA mod dilated, moderately severe MR, mildly dilated RV, mild TR. ) Cardiac cath: report reviewed ([facility] on 01/03/2019 which showed mild CAD (normal left main, prox LAD 20%, first obtuse marginal 10%, second obtuse marginal 10%, prox RCA 50%). ) - EKG Sinus rhythms and dysrhythmias: sinus rhythm AV and intraventricular conduction: intraventricular conducti
[2019-01-29] MEDS ORDERED: NACL 0.9% 1,000 ML, .VANCOMYCIN VIAL 1,000 MG IR ONE (12:50)
--- NOTE | 2019-01-29 13:05 | Anesthesia Day of Surgery ---
Anesthesia Day of Surgery - Day of Surgery Patient Examined: Yes Patient H&P Reviewed: Yes Patient is NPO: Yes Beta Blockers: Yes Cardiac Clearance: Yes
--- NOTE | 2019-01-29 13:10 | Anesthesia Consultation ---
Anesthesia Consult and Med Hx Date of service: 01/29/19 - Airway Anesthetic Teeth Evaluation: Chipped ROM Head & Neck: Adequate Mental/Hyoid Distance: Adequate Mallampati Class: Class I Intubation Access Assessment: Good - Pre-Operative Health Status ASA Pre-Surgery Classification: ASA4 Proposed Anesthetic Plan: General, MAC - Pulmonary COPD: Yes (Acute exacerbation) Hx Sleep Apnea: Yes - Cardiovascular System Hx Hypertension: Yes (CHF-acute. EF 25-30%. Cardiomyopathy) Hx Heart Attack/AMI: Yes (2003. Cath [id number] CAD) Hx Cardia Arrhythmia: Yes (NSVT) - Gastrointestinal Hx Gastroesophageal Reflux Disease: Yes - Endocrine Hx Renal Disease: Yes (CKD)
[2019-01-29] MEDS ORDERED: DIPRIVAN 10 MG/ML IV ONE ×2 (13:14→13:15)
[2019-01-29] MEDS ORDERED: SUBLIMAZE ONE (13:14)
[2019-01-29] MEDS ORDERED: KETALAR ONE (13:15)
[2019-01-29] MEDS ORDERED: VERSED IV ONE (13:15)
[2019-01-29] MEDS ORDERED: MARCAINE 0.5% INFILTRATI ONE (13:26)
[2019-01-29] MEDS ORDERED: XYLOCAINE 1% 20 mL ONE (13:26)
[2019-01-29] MEDS ORDERED: ANCEF/STERILE WATER 2 GM/20 ML 2 GM/20 ML SYRINGE IV ONE (13:26)
[2019-01-29] MEDS ORDERED: NACL 0.9% 500 ML IR ONE (13:26)
[2019-01-29] MEDS ORDERED: NACL 0.9% 500 ML 500 ML ONE (13:27)
[2019-01-29] MEDS ORDERED: DIPRIVAN 10 MG/ML 1,000 MG/100 ML BOTTLE IV ONE (13:28)
[2019-01-29] MEDS ORDERED: NACL 0.9% 1000 ML 1,000 ML ONE (13:49)
[2019-01-29] MEDS ORDERED: HEPARIN/NS 5000 UNIT/500ML(CATH LAB) 500 ML IR ONE (14:09)
[2019-01-29] MEDS ORDERED: .VANCOMYCIN VIAL 1,000 MG in NACL 0.9% 1,000 ML IRRIGATION ONE (15:36)
--- NOTE | 2019-01-29 17:10 | Post Anesthesia Evaluation ---
- Post Anesthesia Evaluation Patient Participated: Yes Airway Patent: Yes Stable Respiratory Function: Yes Nausea/Vomiting: No Temp > 96.8F: Yes Pain Manageable: Yes Adequeate Hydration: Yes Anesthesia Complications: No Block Receding Appropriately: Yes
--- NOTE | 2019-01-29 17:39 | XRay Report ---
CHEST 1 VIEW 01/29/2019 5:08 PM INDICATION / CLINICAL INFORMATION: Pacemaker Postop. COMPARISON: Chest x-ray on 01/22/2019 FINDINGS: SUPPORT DEVICES: Interval placement of biventricular cardiac pacemaker/ICD with leads in expected pos ition. HEART / MEDIASTINUM: Stable mild cardiomegaly. LUNGS / PLEURA: Stable right basilar opacity, probable chronic scarring. No pneumothorax. ADDITIONAL FINDINGS: No significant additional findings. IMPRESSION: 1. No acute findings following biventricular cardiac pacemaker/ICD placement. Signer Name: Graeme Davis MD Signed: 01/29/2019 5:35 PM Workstation Name: [id number]
[2019-01-29] MEDS: HumaLOG SUB-Q SCH ×3 (17:46→22:39)
[2019-01-29] MEDS: COZAAR PO SCH (17:47)
[2019-01-29] MEDS: LASIX PO SCH (17:47)
[2019-01-29] MEDS: PROSCAR PO SCH (17:47)
[2019-01-29] MEDS: COREG PO SCH ×2 (17:47→22:37)
[2019-01-29] MEDS: VITAMIN B-12 PO SCH (17:47)
[2019-01-29] MEDS: PEPCID PO SCH ×2 (17:47→22:37)
[2019-01-29] MEDS: HALFPRIN EC PO SCH (17:47)
[2019-01-29] MEDS: CLARITIN PO SCH (17:48)
[2019-01-29] MEDS: SOLU-Medrol IV SCH (17:48)
[2019-01-29] MEDS: FLONASE NS SCH (17:48)
[2019-01-29] MEDS: ALDACTONE PO SCH (17:48)
[2019-01-29] MEDS: SODIUM CHLORIDE FLUSH SYRINGE 10 ML IV SCH ×2 (17:48→22:38)
[2019-01-29] MEDS: DILAUDID IV PRN ×2 (18:16→22:38)
[2019-01-29] MEDS: SINGULAIR PO SCH (18:17)
--- NOTE | 2019-01-29 18:47 | Progress Note ---
Assessment and Plan Assessment and plan: 58-year-old man who presents with shortness of breath 1 week Chronic systolic CHF with exacerbation cont Lasix Echocardiogram showed 25-30% Cardiology consulted and with lengthy discussion with patient regarding the risk and benefits of BiV cardiac defibrillator implantation. Patient agrees to proceed and is scheduled for January 29. Chest pain Troponins were negative, stress test neg COPD with acute exacerbation Nebulizer treatments with albuterol and ipratropium, taper IV Solu-Medrol. On IV Levaquin BiPAP if necessary BPH (benign prostatic hyperplasia) Continue tamsulosin and Proscar Hypertension Continue antihypertensives Hyperlipidemia Continue statins Coronary artery disease Continue Isordil and aspirin Hyperkalemia Stop KCL supplementation DVT prophylaxis On Lovenox Disposition. patient reportedly received lifevest History Interval history: Review of systems Constitutional: No fevers, no malaise, no joint pains CVS: No chest pain, no orthopnea, no dyspnea on exertion, no pedal edema GI: No abdominal pain, no diarrhea, no vomiting, no constipation Respiratory: no wheezing, no coughing Hospitalist Physical - Physical exam Narrative exam: General.: Appears well, no distress, nontoxic HEENT: Moist mucous membranes, extraocular muscles intact, no lymphadenopathy Neck: supple Cardiac: S1-S2 heard Lungs: decreased air entry Abdomen: soft , nontender, nondistended, bowel sounds positive Extremities: no edema clubbing or cyanosis Skin: no rash or lesions Neurologic: no gross focal deficits Psych: calm, and cooperative - Constitutional Vitals: Temp Pulse Resp BP Pulse Ox 97.4 F L 73 18 140/91 100 01/29/19 17:00 01/29/19 17:56 01/29/19 17:00 01/29/19 17:56 01/29/19 17:56 General appearance: Present: no acute distress Results - Labs CBC & Chem 7: 01/29/19 04:18 01/29/19 04:18 Labs: Laboratory Last Values WBC 21.1 K/mm3 (4.5-11.0) H 01/29/19 04:18 RBC 4.36 M/mm3 (3.65-5.03) 01/29/19 04:18 Hgb 12.9 gm/dl (11.8-15.2) 01/29/19 04:18 Hct 40.8 % (35.5-45.6) 01/29/19 04:18 MCV 94 fl (84-94) 01/29/19 04:18 MCH 30 pg (28-32) 01/29/19 04:18 MCHC 32 % (32-34) 01/29/19 04:18 RDW 14.0 % (13.2-15.2) 01/29/19 04:18 Plt Count 313 K/mm3 (140-440) 01/29/19 04:18 Lymph % (Auto) 4.1 % (13.4-35.0) L 01/22/19 03:40 [place] % (Auto) 10.1 % (0.0-7.3) H 01/22/19 03:40 Eos % (Auto) 0.2 % (0.0-4.3) 01/22/19 03:40 Baso % (Auto) 0.1 % (0.0-1.8) 01/22/19 03:40 Lymph # 0.6 K/mm3 (1.2-5.4) L 01/22/19 03:40 [place] # 1.5 K/mm3 (0.0-0.8) H 01/22/19 03:40 Eos # 0.0 K/mm3 (0.0-0.4) 01/22/19 03:40 Baso # 0.0 K/mm3 (0.0-0.1) 01/22/19 03:40 Add Manual Diff Complete 01/29/19 04:18 Total Counted 100 01/29/19 04:18 Seg Neutrophils % 85.5 % (40.0-70.0) H 01/22/19 03:40 Seg Neuts % (Manual) 88.0 % (40.0-70.0) H 01/29/19 04:18 0 % 01/29/19 04:18 7.0 % (13.4-35.0) L 01/29/19 04:18 Reactive Lymphs % (Man) 0 % 01/29/19 04:18 5.0 % (0.0-7.3) 01/29/19 04:18 0 % (0.0-4.3) 01/29/19 04:18 0 % (0.0-1.8) 01/29/19 04:18 0 % 01/29/19 04:18 0 % 01/29/19 04:18 0 % 01/29/19 04:18 0 % 01/29/19 04:18 Nucleated RBC % Not Reportable 01/29/19 04:18 Seg Neutrophils # 12.8 K/mm3 (1.8-7.7) H 01/22/19 03:40 Seg Neutrophils # Man 18.6 K/mm3 (1.8-7.7) H 01/29/19 04:18 Band Neutrophils # 0.0 K/mm3 01/29/19 04:18 1.5 K/mm3 (1.2-5.4) 01/29/19 04:18 Abs React Lymphs (Man) 0.0 K/mm3 01/29/19 04:18 1.1 K/mm3 (0.0-0.8) H 01/29/19 04:18 0.0 K/mm3 (0.0-0.4) 01/29/19 04:18 0.0 K/mm3 (0.0-0.1) 01/29/19 04:18 0.0 K/mm3 01/29/19 04:18 0.0 K/mm3 01/29/19 04:18 0.0 K/mm3 01/29/19 04:18 Blast Cells # 0.0 K/mm3 01/29/19 04:18 WBC Morphology Not Reportable 01/29/19 04:18 Hypersegmented Neuts Not Reportable 01/29/19 04:18 Hyposegmented Neuts Not Reportable 01/29/19 04:18 Hypogranular Neuts Not Reportable 01/29/19 04:18 Not Reportable 01/29/19 04:18 Not Reportable 01/29/19 04:18 Not Reportable 01/29/19 04:18 Not Reportable 01/29/19 04:18 Not Reportable 01/29/19 04:18 Not Reportable 01/29/19 04:18 Consistent w auto 01/29/19 04:18 Not Reportable 01/29/19 04:18 Plt Clumps, EDTA Not Reportable 01/29/19 04:18 Rare 01/29/19 04:18 Not Reportable 01/29/19 04:18 Not Reportable 01/29/19 04:18 Plt Morphology Comment Not Reportable 01/29/19 04:18 RBC Morphology Normal 01/29/19 04:18 Dimorphic RBCs Not Reportable 01/29/19 04:18 Not Reportable 01/29/19 04:18 Not Reportable 01/29/19 04:18 Not Reportable 01/29/19 04:18 Not Reportable 01/29/19 04:18 Not Reportable 01/29/19 04:18 Not Reportable 01/29/19 04:18 Not Reportable 01/29/19 04:18 Not Reportable 01/29/19 04:18 Not Reportable 01/29/19 04:18 Not Reportable 01/29/19 04:18 Not Reportable 01/29/19 04:18 Not Reportable 01/29/19 04:18 Not Reportable 01/29/19 04:18 Not Reportable 01/29/19 04:18 Not Reportable 01/29/19 04:18 Not Reportable 01/29/19 04:18 Not Reportable 01/29/19 04:18 Not Reportable 01/29/19 04:18 Not Reportable 01/29/19 04:18 Acanthocytes (Spur) Not Reportable 01/29/19 04:18 Rouleaux Not Reportable 01/29/19 04:18 Not Reportable 01/29/19 04:18 Not Reportable 01/29/19 04:18 Not Reportable 01/29/19 04:18 Not Reportable 01/29/19 04:18 Hem Pathologist Commnt No 01/29/19 04:18 PT 13.8 Sec. (12.2-14.9) 01/29/19 04:18 INR 1.09 (0.87-1.13) 01/29/19 04:18 341.68 ng/mlDDU (0-234) H 01/22/19 07:08 Sodium 135 mmol/L (137-145) L 01/29/19 04:18 Potassium 4.3 mmol/L (3.6-5.0) 01/29/19 04:18 Chloride 98.8 mmol/L (98-107) 01/29/19 04:18 Carbon Dioxide 26 mmol/L (22-30) 01/29/19 04:18 15 mmol/L 01/29/19 04:18 BUN 27 mg/dL (9-20) H 01/29/19 04:18 1.0 mg/dL (0.8-1.5) 01/29/19 04:18 Estimated GFR > 60 ml/min 01/29/19 04:18 27 % 01/29/19 04:18 Glucose 209 mg/dL (75-100) H 01/29/19 04:18 POC Glucose 94 (70-105) 01/29/19 18:16 5.1 % (4-6) 01/22/19 21:50 Calcium 9.0 mg/dL (8.4-10.2) 01/29/19 04:18 Magnesium 2.00 mg/dL (1.7-2.3) 01/25/19 14:57 0.30 mg/dL (0.1-1.2) 01/23/19 05:47 AST 13 units/L (5-40) 01/23/19 05:47 ALT 6 units/L (7-56) L 01/23/19 05:47 86 units/L (35-129) 01/23/19 05:47 < 0.010 ng/mL (0.00-0.029) 01/22/19 08:30 NT-Pro-B Natriuret Pep 3501 pg/mL (0-900) H 01/22/19 07:08 7.2 g/dL (6.3-8.2) 01/23/19 05:47 3.8 g/dL (3.9-5) L 01/23/19 05:47 1.1 % 01/23/19 05:47 Blood Type O POSITIVE 01/29/19 08:24 Antibody Screen Negative 01/29/19 08:24 Active Medications - Current Medications Current Medications: Generic Name Dose Route Start Last Admin Trade Name Freq PRN Reason Stop Dose Admin Acetaminophen 650 mg 01/22/19 21:02 Tylenol PO Q4H PRN Pain MILD(1-3)/Fever >100.5/HUITRON Albuterol 2.5 mg 01/24/19 14:15 01/29/19 15:13 Proventil IH Not Given Q6HRT RUFUS Arformoterol Tartrate 15 mcg 01/22/19 22:00 01/29/19 08:04 Brovana Nebu IH 15 mcg Q12HRT RUFUS Administration Aspirin 81 mg 01/22/19 21:00 01/29/19 17:47 Halfprin Ec PO 81 mg QDAY RUFUS Administration Atorvastatin Calcium 20 mg 01/22/19 20:30 01/29/19 17:47 Lipitor PO 20 mg DAILY URFUS Administration Budesonide 0.5 mg 01/24/19 14:09 01/29/19 08:04 Pulmicort IH 0.5 mg Q12HRT RUFUS Administration Carvedilol 12.5 mg 01/22/19 22:00 01/29/19 17:47 Coreg PO 12.5 mg BID RUFUS Administration Cyanocobalamin 2,000 mcg 01/22/19 21:00 01/29/19 17:47 Vitamin B-12 PO 2,000 mcg DAILY RUFUS Administration Dextrose 50 ml 01/26/19 17:38 D50w (25gm) Syringe IV PRN PRN Hypoglycemia Enoxaparin Sodium 40 mg 01/22/19 22:00 01/28/19 21:47 Lovenox SUB-Q 40 mg QDAY@2200 RUFUS Administration Famotidine 20 mg 01/28/19 22:00 01/29/19 17:47 Pepcid PO 20 mg BID RUFUS Administration Finasteride 5 mg 01/22/19 21:00 01/29/19 17:47 Proscar PO 5 mg QDAY RUFUS Administration Fluticasone Propionate 100 mcg 01/22/19 21:00 01/29/19 17:48 Flonase NS 100 mcg QDAY RUFUS Administration Furosemide 40 mg 01/26/19 10:00 01/29/19 17:47 Lasix PO 40 mg QDAY RUFUS Administration Hydromorphone HCl 0.5 mg 01/22/19 21:02 01/29/19 18:16 Dilaudid IV 0.5 mg Q3H PRN Administration Pain , Severe (7-10) Sodium Chloride 500 mls @ 50 mls/hr 01/25/19 08:00 01/25/19 07:48 Nacl 0.9% 500 Ml IV 50 mls/hr DIRECT RUFUS Administration Cefazolin Sodium 1 gm in 50 mls @ 100 mls/hr 01/29/19 21:00 Ancef/Ns 1 Gm/50 Ml IV 01/30/19 05:29 Q8H RUFUS Insulin Human Lispro 0 unit 01/26/19 22:00 01/29/19 17:47 Humalog SUB-Q Not Given ACHS [facility] Protocol Loratadine 10 mg 01/22/19 21:00 01/29/19 17:48 Claritin PO 10 mg DAILY RUFUS Administration Losartan Potassium 25 mg 01/25/19 11:00 01/29/19 17:47 Cozaar PO 25 mg QDAY RUFUS Administration Methylprednisolone Sodium Succinate 20 mg 01/29/19 10:00 01/29/19 17:48 Solu-Medrol IV 20 mg Q24HR RUFUS Administration Montelukast Sodium 10 mg 01/23/19 18:00 01/29/19 18:17 Singulair PO 10 mg QPM RUFUS Administration Ondansetron HCl 4 mg 01/22/19 21:02 Zofran IV Q8H PRN Nausea And Vomiting Oxycodone/Acetaminophen 1 tab 01/22/19 21:02 Percocet 5/325 PO Q6H PRN Pain, Moderate (4-6) Sodium Chloride 10 ml 01/22/19 22:00 01/29/19 17:48 Sodium Chloride Flush Syringe 10 Ml IV 10 ml BID RUFUS Administration Sodium Chloride 10 ml 01/22/19 21:02 Sodium Chloride Flush Syringe 10 Ml IV PRN PRN LINE FLUSH Spironolactone 25 mg 01/22/19 21:00 01/29/19 17:48 Aldactone PO 25 mg QDAY RUFUS Administration Tamsulosin HCl 0.4 mg 01/22/19 22:00 01/28/19 21:47 Flomax PO 0.4 mg HS RUFUS Administration Nutrition/Malnutrition Assess - Dietary Evaluation Nutrition/Malnutrition Findings: Nutrition Notes Start: 01/29/19 10:14 Freq: Status: Active Protocol: Document 01/29/19 10:14 BRIGID (Rec: 01/29/19 10:18 [id number]) Nutrition Notes Need for Assessment generated from: LOS Initial or Follow up Brief Note Height 5 ft 11 in Weight 104.4 kg [place] Body Weight (kg) 78.18 BMI 32.1 Subjective/Other Information Pt screened for LOS. He has consumed 83% of meals since admission, which meets >75% estimated energy and pro needs . Percent of energy/protein needs met: 88% energy 94% pro Is patient on ventilator? No Is Patient Ambulatory and/or Out of Bed Yes REE-([facility]-ambulatory/OOB) [ 2438.969 [id number]] Kcal/Kg value to use for calculation 19 Approximate Energy Requirements Using 1984 kcal/Kg Calculation Used for Recommendations Kcal/kg Additional Notes Pro needs 0.8-1g/kg adjBW: 73- 91g/day Fluid needs 1ml/kcal Nutrition Intervention Revisit per MD consult or patient Sign Off request:
[2019-01-29] MEDS: ANCEF/NS 1 GM/50 ML 1 GM/50 ML BAG IV SCH (20:41)
[2019-01-29] MEDS: LOVENOX SUB-Q SCH (22:37)
[2019-01-29] MEDS: FLOMAX PO SCH (22:37)
[2019-01-30] MEDS: PROVENTIL IH SCH ×5 (01:55→20:21)
[2019-01-30] MEDS: ANCEF/NS 1 GM/50 ML 1 GM/50 ML BAG IV SCH (04:07)
[2019-01-30] MEDS: DILAUDID IV PRN ×2 (04:07→10:20)
[2019-01-30] MEDS: HumaLOG SUB-Q SCH ×3 (07:59→16:38)
[2019-01-30] MEDS: BROVANA NEBU IH SCH ×2 (08:25→20:21)
[2019-01-30] MEDS: PULMICORT IH SCH ×2 (08:26→20:20)
[2019-01-30] MEDS: HALFPRIN EC PO SCH (10:19)
[2019-01-30] MEDS: PROSCAR PO SCH (10:19)
[2019-01-30] MEDS: VITAMIN B-12 PO SCH (10:19)
[2019-01-30] MEDS: CLARITIN PO SCH (10:19)
[2019-01-30] MEDS: PEPCID PO SCH (10:20)
[2019-01-30] MEDS: SOLU-Medrol IV SCH (10:21)
[2019-01-30] MEDS: SODIUM CHLORIDE FLUSH SYRINGE 10 ML IV SCH (10:22)
[2019-01-30] MEDS: ALDACTONE PO SCH (10:22)
[2019-01-30] MEDS: COZAAR PO SCH (10:23)
[2019-01-30] MEDS: COREG PO SCH (10:23)
[2019-01-30] MEDS: FLONASE NS SCH (10:24)
[2019-01-30] MEDS: LASIX PO SCH (10:25)
[2019-01-30 10:26] VITALS: BP 113/71
--- NOTE | 2019-01-30 10:36 | Progress Note ---
Assessment and Plan Pt s/p AICD implantation yesterday. Left pectoralis AICD site pressure dressing removed, site covered with telfa and tegaderm dressing which is noted to have old blood on site. No current evidence of active bleeding or hematoma. Will replace telfa and tegaderm dressing as per Dr. Armendariz' recommendation. Post procedure CXR with NAF. Device interrogation this AM showed normal device function. Currently stable cardiac status. Pt may discharge home from cardiology standpoint after AICD dressing is changed. Follow up in our [place] office for post-op device clinic on 02/08/2019 @ 2:30PM. Follow up in our [place] office with Dr. ADAM Gutierrez on 02/08/2019 @ 3:30PM. The patient has been seen in conjunction with Dr. Parker who agrees with the assessment and plan of care. - Patient Problems (1) Acute HFrEF (heart failure with reduced ejection fraction) Current Visit: Yes Status: Acute (2) Nonischemic dilated cardiomyopathy Current Visit: Yes Status: Chronic (3) COPD with acute exacerbation Current Visit: Yes Status: Acute (4) Chest pain Current Visit: Yes Status: Resolved Qualifiers: Chest pain type: unspecified Qualified Code(s): R07.9 - Chest pain, un specified (5) Coronary artery disease Current Visit: Yes Status: Chronic Qualifiers: Coronary Disease-Associated Artery/Lesion type: [place] artery [place] vs. transplanted heart: [place] heart (6) Hyperlipidemia Current Visit: Yes Status: Chronic Qualifiers: Hyperlipidemia type: mixed hyperlipidemia Qualified Code(s): E78.2 - Mixed hyperlipidemia (7) Hypertension Current Visit: Yes Status: Chronic Qualifiers: Hypertension type: essential hypertension Qualified Code(s): I10 - Essential (primary) hypertension (8) CKD (chronic kidney disease) Current Visit: Yes Status: Chronic (9) NSVT (nonsustained ventricular tachycardia) Current Visit: Yes Status: Acute (10) Automatic implantable cardioverter-defibrillator in situ Current Visit: Yes Status: Chronic Subjective Date of service: 01/30/19 Principal diagnosis: HF Interval history: pt resting at bedside, no current cardiac complaints. S/p AICD implantation yesterday, c/o soreness related to incision site. Objective Last Vital Signs Temp 98.3 F 01/30/19 04:09 Pulse 70 01/30/19 10:23 Resp 18 01/30/19 04:37 BP 113/71 01/30/19 10:23 Pulse Ox 97 01/30/19 04:09 - Physical Examination General: No Apparent Distress HEENT: Positive: PERRL, Normocephaly, Mucus Membranes Moist Neck: Positive: neck supple, trachea midline Cardiac: Positive: Reg Rate and Rhythm, S1/S2 Lungs: Positive: Decreased Breath Sounds Neuro: Positive: Grossly Intact Abdomen: Positive: Unremarkable. Negative: Tender /Rectal: Other (Deferred) Incision: Incision Site ( Left pectoralis AICD site pressure dressing removed, site covered with telfa and tegaderm dressing which is noted to have old blood on site. No current evidence of active bleeding or hematoma. ) Musculoskeletal: No Pain Extremities: Present: normal, +1 Edema. Absent: edema - Imaging and Cardiology EKG: report reviewed, image reviewed Echo: report reviewed ( EF 25-30%, LV mod dilated, pseudonormalization, LA mildly dilated, RA mod dilated, moderately severe MR, mildly dilated RV, mild TR. ) Cardiac cath: report reviewed ([facility] at [facility] on 01/03/2019 which showed mild CAD (normal left main, prox LAD 20%, first obtuse marginal 10%, second obtuse marginal 10%, prox RCA 50%). ) - EKG Sinus rhythms and dysrhythmias: sinus rhythm AV and intraventricular conduction: intraventricular conducti
--- NOTE | 2019-01-30 15:12 | Discharge Summary ---
Providers - Providers Date of Admission: 01/22/19 13:16 Attending physician: ANGELA SMITH MD 01/22/19 21:02 Consult to Physician [CONS] Routine Comment: Consulting Provider: LANCE BRUCE Physician Instructions: Reason For Exam: CHF [facility] Hospital[facility] Condition: Stable Hospital course: 58-year-old man who presents with shortness of breath 1 week Chronic systolic CHF with exacerbation received Lasix Echocardiogram showed 25-30% s/p BiV cardiac defibrillator implantation, January 29. Chest pain Troponins were negative, stress test neg COPD with acute exacerbation Receive steroids nebs antibiotics BPH (benign prostatic hyperplasia) Continue tamsulosin and Proscar Hypertension Continue antihypertensives Hyperlipidemia Continue statins Coronary artery disease Continue Isordil and aspirin Hyperkalemia Stopped KCL supplementation DVT prophylaxis On Lovenox Disposition: DC-01 TO HOME OR SELFCARE Time spent for discharge: 33 mins Core Measure Documentation - Palliative Care Palliative Care/ Comfort Measures: Not Applicable - Core Measures Any of the following diagnoses?: none Exam - Constitutional Vitals: Temp Pulse Resp BP Pulse Ox 98.3 F 70 18 113/71 97 01/30/19 04:09 01/30/19 10:23 01/30/19 04:37 01/30/19 10:23 01/30/19 04:09 General appearance: Present: no acute distress, well-nourished - EENT Eyes: Present: PERRL ENT: hearing intact, clear oral mucosa - Neck Neck: Present: supple, normal ROM - Respiratory Respiratory effort: normal Respiratory: bilateral: CTA - Cardiovascular Heart Sounds: Present: S1 & S2. Absent: rub, click - Extremities Extremities: pulses symmetrical, No edema Peripheral Pulses: within normal limits - Abdominal General gastrointestinal: Present: soft, non-tender, non-distended, normal bowel sounds Male genitourinary: Present: normal - Integumentary Integumentary: Present: clear, warm, dry - Musculoskeletal Musculoskeletal: gait normal, strength equal bilaterally - Psychiatric Psychiatric: appropriate mood/affect, intact judgment & insight - Neurologic Neurologic: CNII-XII intact, moves all extremities Plan Follow up with: SAMMI ESPOSITO MD [Staff Physician] - 7 Days (Follow up in our [place] office with Dr. ADAM Esposito on 02/08/2019 @ 3:30PM. ) LYSSA BERKOWITZ MD [Staff Physician] - 7 Days (Follow up in our [place] office for post-op device clinic on 02/08/2019 @ 2:30PM. ) AMBER SILVA MD [Primary Care Provider] - 7 Days Forms: [facility] PCI D/C Instructions Prescriptions: Losartan [Cozaar] 25 mg PO QDAY #30 tablet predniSONE [Deltasone] 10 mg PO QDAY 5 Days tab Furosemide [Lasix TAB] 40 mg PO QDAY #30 tablet oxyCODONE /ACETAMINOPHEN [Percocet 5/325 mg] 1 tab PO Q6H PRN #30 tablet PRN Reason: Pain, Moderate (4-6)
[2019-01-30] MEDS: SINGULAIR PO SCH (17:01)
== END 2019-01-30 20:15 | disposition home or self-care (01) | DRG 226 ==
LOC: ED 01:33 → 4A 13:16 → UNDODISIN 01-23 20:15
PROVIDERS: ADMIT Internal Medicine; ATTEND Internal Medicine
PROC: 0JH609Z Insertion of Cardiac Resynchronization Defibrillator Pulse Generator into Chest Subcutaneous Tissue and Fascia, Open Approach (ICD-10-PCS; principal; 2019-01-29)
PROC: 02HL3KZ Insertion of Defibrillator Lead into Left Ventricle, Percutaneous Approach (ICD-10-PCS; 2019-01-29)
PROC: 02HK3KZ Insertion of Defibrillator Lead into Right Ventricle, Percutaneous Approach (ICD-10-PCS; 2019-01-29)
PROC: 02H63KZ Insertion of Defibrillator Lead into Right Atrium, Percutaneous Approach (ICD-10-PCS; 2019-01-29)
PROC: 4B02XTZ Measurement of Cardiac Defibrillator, External Approach (ICD-10-PCS; 2019-01-30)
DX: I13.0 Hypertensive heart and chronic kidney disease with heart failure and stage 1 through stage 4 chronic kidney disease, or unspecified chronic kidney disease (principal); I50.43 Acute on chronic combined systolic (congestive) and diastolic (congestive) heart failure; J44.1 Chronic obstructive pulmonary disease with (acute) exacerbation; I25.10 Atherosclerotic heart disease of native coronary artery without angina pectoris; N40.1 Benign prostatic hyperplasia with lower urinary tract symptoms; E78.5 Hyperlipidemia, unspecified; R39.11 Hesitancy of micturition; N18.9 Chronic kidney disease, unspecified; I42.9 Cardiomyopathy, unspecified; I47.2 Ventricular tachycardia; K21.9 Gastro-esophageal reflux disease without esophagitis; E78.2 Mixed hyperlipidemia; E87.6 Hypokalemia; Z87.891 Personal history of nicotine dependence; Z82.49 Family history of ischemic heart disease and other diseases of the circulatory system; Z79.51 Long term (current) use of inhaled steroids; Z79.899 Other long term (current) drug therapy; I25.2 Old myocardial infarction; E87.5 Hyperkalemia
CPT/HCPCS: 36415; 71045; 71275; 78452; 80048; 80053; 82962; 83036; 83735; 83880; 84484; 85007; 85025; 85379; 85610; 86850; 86900; 86901; 87040; 93005; 93010; 93017; 93306; 94640; 94760; G0378; A9270-GY; A9502; C1894; J0690; J1170; J1644; J1650; J1815; J1940; J1956; J2250; J2405; J2704; J2785; J2920; J3010; J3370; J7030; J7040; J7512; Q9967